=== PATIENT | female | born 1955 | race African-American/Black ===

== ENCOUNTER → 2019-07-02 | Outpatient (CLI) | payer MEDICARE | END | disposition home or self-care (01) | LOC: LABWHC1 08:02 | PROVIDERS: ATTEND Surgery | DX: U07.1 COVID-19 (principal) | CPT/HCPCS: 87635 ==

== ENCOUNTER 2019-07-04 13:36 | Day surgery (SDC) | payer BC, MEDICARE ==
[2019-07-03 11:03] VITALS: BMI 29.2
--- NOTE | 2019-07-04 13:03 | P.GSHP ---
History of Present Illness H&P Date: 07/04/19 Chief Complaint: Right upper quadrant pain This is a 63-year-old female with quadrant quadrant pain. Patient's workup found have gallstones. She presents today for laparoscopic cholecystectomy Past Medical History Past Medical History: Deep Vein Thrombosis (DVT), GERD/Reflux, Hypertension, Liver Disease, Osteoarthritis (OA) Additional Past Medical History / Comment(s): Hx migraines, had inj 1 month ago. DVT ankle as teen. "Borderline" DM. Hep C 2002, had tx. [facility], last cortisone inj 02/2019 est. Varicose veins. "Sludge" in gallbladder. History of Any Multi-Drug Resistant Organisms: None Reported Past Surgical History: Back Surgery, Tubal Ligation Additional Past Surgical History / Comment(s): Atopic preg, cyst on ovary, removal tube. Miscarriage, D&C; x2. Back surg x3, 1990, 1992 x2 - Lumbar Laminectomy. Past Anesthesia/Blood Transfusion Reactions: Motion Sickness Smoking Status: Current every day smoker - Past Family History Father Family Medical History: Coronary Artery Disease (CAD) Medications and Allergies Home Medications Medication Instructions Recorded Confirmed Type ALPRAZolam [Xanax] 0.5 mg PO BID PRN 07/03/19 07/03/19 History Acetaminophen [Tylenol Extra 1,000 mg PO DIRECTED PRN 07/03/19 07/03/19 History Strength] Atenolol [Tenormin] 100 mg PO HS 07/03/19 07/03/19 History Escitalopram [Lexapro] 20 mg PO HS 07/03/19 07/03/19 History Famotidine [Pepcid] 40 mg PO HS 07/03/19 07/03/19 History Fremanezumab-Vfrm [Ajovy] 225 mg SQ DIRECTED 07/03/19 07/03/19 History Hemp Cream (Unknown Dose) 1 applic TOPICAL DIRECTED PRN 07/03/19 History Ibuprofen [Motrin] 800 mg PO Q8H PRN 07/03/19 07/03/19 History Rizatriptan Benzoate [Maxalt] 10 mg PO TID PRN 07/03/19 07/03/19 History Allergies Allergy/AdvReac Type Severity Reaction Status Date / Time No Known Allergies Allergy Verified 07/03/19 10:31 Surgical - Exam - General well developed, well nourished, no distress - Eyes PERRL - ENT normal pinna - Neck no masses - Respiratory normal expansion - Cardiovascular Rhythm: regular - Abdomen Abdomen: soft, non tender Assessment and Plan Assessment: Right upper quadrant pain Cholelithiasis We'll perform laparoscopic cholecystectomy
[~2019-07-04 13:36] MED LIST: ACETAMINOPHEN TAB 500 MG TAB PO ONE; HEPARIN SODIUM,PORCINE 5,000 UNIT/ML 1 ML VIAL SQ ONE
[2019-07-04] MEDS ORDERED: LACTATED RINGERS 1,000 ML IV ONE ×4 (13:59→16:01)
[2019-07-04] MEDS ORDERED: LIDOCAINE 1% (10MG/ML) FOR IV START INTRADERMA ONE (14:09)
[2019-07-04] MEDS ORDERED: DEXAMETHASONE SOD PHOS (MDV) 100 MG/10 ML VIAL IVP ONE (14:16)
[2019-07-04] MEDS ORDERED: ONDANSETRON 4 MG/2 ML VIAL IVP ONE (14:16)
[2019-07-04 14:20] LABS: Glucose,Whole Blood 118 mg/dL (75-99)
[2019-07-04 14:25] LABS: Basophils % (A) 0 %; Eosinophils # (A) 0.1 k/uL (0-0.7); Eosinophils % (A) 2 %; HCT 42.2 % (34.0-46.0); HGB 14.6 gm/dL (11.4-16.0); Lymphocytes # (A) 1.6 k/uL (1.0-4.8); Lymphocytes % (A) 23 %; MCH 32.6 pg (25.0-35.0); MCHC 34.6 g/dL (31.0-37.0); MCV 94.2 fL (80.0-100.0); Mean Platelet Volume 8.3; Monocytes # (A) 0.4 k/uL (0-1.0); Monocytes % (A) 5 %; Neutrophils # (A) 4.8 k/uL (1.3-7.7); Neutrophils % (A) 68 %; Platelet Count 368 k/uL (150-450); RBC 4.48 m/uL (3.80-5.40); RDW 12.8 % (11.5-15.5); WBC 7.1 k/uL (3.8-10.6)
[2019-07-04 14:35] LABS: Calcium 9.6 mg/dL (8.4-10.2); Potassium 4.4 mmol/L (3.5-5.1)
[2019-07-04] MEDS ORDERED: BUPIVACAIN-EPI 0.25%-1:200,000 30 ML VIAL SQ ONE (14:50)
[2019-07-04] MEDS ORDERED: SUCCINYLCHOLINE CHLORIDE 100 MG/5 ML SYR IV ONE (14:50)
[2019-07-04] MEDS ORDERED: METOPROLOL TARTRATE 5 MG/5 ML VIAL IVP ONE (14:50)
[2019-07-04] MEDS ORDERED: GLYCOPYRROLATE 0.2 MG/ML 2 ML VIAL ONE (14:50)
[2019-07-04] MEDS ORDERED: PROPOFOL 10 MG/ML 20 ML VIAL IV ONE (14:50)
[2019-07-04] MEDS ORDERED: NEOSTIGMINE 1 MG/ML 10 ML VIAL ONE (14:50)
[2019-07-04] MEDS ORDERED: KETOROLAC 30 MG/ML 1 ML VIAL ONE (14:50)
[2019-07-04] MEDS ORDERED: fentaNYL (PF) 50 MCG/ML 2 ML AMP ONE (14:50)
[2019-07-04] MEDS ORDERED: MIDAZOLAM 2 MG/2 ML VIAL ONE (14:50)
[2019-07-04] MEDS ORDERED: LIDOCAINE 1% INJ 10MG/ML (20 ML MDV) ONE (14:50)
[2019-07-04] MEDS ORDERED: ROCURONIUM BROMIDE 10 MG/ML 5 ML VIAL IV ONE (14:50)
--- NOTE | 2019-07-04 14:56 | P.GSHP ---
History of Present Illness H&P Date: 07/04/19 Chief Complaint: Cholelithiasis, right upper quadrant pain 63-year-old female been safe for laparoscopic cholestatic. Patient is where quadrant pain. She's known to have cholelithiasis. Past Medical History Past Medical History: Deep Vein Thrombosis (DVT), GERD/Reflux, Hypertension, Liver Disease, Osteoarthritis (OA) Additional Past Medical History / Comment(s): Hx migraines, had inj 1 month ago. DVT ankle as teen. "Borderline" DM. Hep C 2002, had tx. [facility], last cortisone inj 02/2019 est. Varicose veins. "Sludge" in gallbladder. History of Any Multi-Drug Resistant Organisms: None Reported Past Surgical History: Back Surgery, Tubal Ligation Additional Past Surgical History / Comment(s): Atopic preg, cyst on ovary, re moval tube. Miscarriage, D&C; x2. Back surg x3, 1990, 1992 x2 - Lumbar Laminectomy. Past Anesthesia/Blood Transfusion Reactions: Motion Sickness Smoking Status: Current every day smoker - Past Family History Father Family Medical History: Coronary Artery Disease (CAD) Medications and Allergies Home Medications Medication Instructions Recorded Confirmed Type ALPRAZolam [Xanax] 0.5 mg PO BID PRN 07/03/19 07/03/19 History Acetaminophen [Tylenol Extra 1,000 mg PO DIRECTED PRN 07/03/19 07/04/19 History Strength] Atenolol [Tenormin] 100 mg PO HS 07/03/19 07/04/19 History Escitalopram [Lexapro] 20 mg PO HS 07/03/19 07/04/19 History Famotidine [Pepcid] 40 mg PO HS 07/03/19 07/04/19 History Fremanezumab-Vfrm [Ajovy] 225 mg SQ DIRECTED 07/03/19 07/03/19 History Hemp Cream (Unknown Dose) 1 applic TOPICAL DIRECTED PRN 07/03/19 07/04/19 History Ibuprofen [Motrin] 800 mg PO Q8H PRN 07/03/19 07/03/19 History Rizatriptan Benzoate [Maxalt] 10 mg PO TID PRN 07/03/19 07/04/19 History Allergies Allergy/AdvReac Type Severity Reaction Status Date / Time No Known Allergies Allergy Verified 07/03/19 10:31 Surgical - Exam Vital Signs Temp Pulse Resp BP Pulse Ox 97.8 F 78 18 164/79 97 07/04/19 13:53 07/04/19 13:53 07/04/19 13:53 07/04/19 13:53 07/04/19 13:53 - General well developed, well nourished, no distress - Eyes PERRL - ENT normal pinna - Neck no masses - Respiratory normal expansion - Cardiovascular Rhythm: regular - Abdomen Abdomen: soft, non tender Results - Labs 07/04/19 14:07 07/04/19 14:07 Abnormal Lab Results - Last 24 Hours (Table) 07/04/19 07/04/19 Range/Units 14:07 14:12 Chloride 108 H (98-107) mmol/L Glucose 122 H (74-99) mg/dL POC Glucose (mg/dL) 118 H (75-99) mg/dL Diabetes panel 07/04/19 Range/Units 14:07 Sodium 138 (137-145) mmol/L Potassium 4.4 (3.5-5.1) mmol/L Chloride 108 H (98-107) mmol/L Carbon Dioxide 22 (22-30) mmol/L BUN 10 (7-17) mg/dL Creatinine 0.92 (0.52-1.04) mg/dL Glucose 122 H (74-99) mg/dL Calcium 9.6 (8.4-10.2) mg/dL Calcium panel 07/04/19 Range/Units 14:07 Calcium 9.6 (8.4-10.2) mg/dL Pituitary panel 07/04/19 Range/Units 14:07 Sodium 138 (137-145) mmol/L Potassium 4.4 (3.5-5.1) mmol/L Chloride 108 H (98-107) mmol/L Carbon Dioxide 22 (22-30) mmol/L BUN 10 (7-17) mg/dL Creatinine 0.92 (0.52-1.04) mg/dL Glucose 122 H (74-99) mg/dL Calcium 9.6 (8.4-10.2) mg/dL Adrenal panel 07/04/19 Range/Units 14:07 Sodium 138 (137-145) mmol/L Potassium 4.4 (3.5-5.1) mmol/L Chloride 108 H (98-107) mmol/L Carbon Dioxide 22 (22-30) mmol/L BUN 10 (7-17) mg/dL Creatinine 0.92 (0.52-1.04) mg/dL Glucose 122 H (74-99) mg/dL Calcium 9.6 (8.4-10.2) mg/dL Assessment and Plan Assessment: Cholelithiasis, right upper quadrant pain. We'll perform laparoscopic cholecystectomy
[2019-07-04] MEDS ORDERED: ONDANSETRON 4 MG/2 ML VIAL IVP PRN (15:25)
[2019-07-04] MEDS ORDERED: NALOXONE 0.4 MG/ML 1 ML VIAL IV PRN (15:25)
[2019-07-04] MEDS ORDERED: HYDROcodone/APAP 5-325MG 1 EACH TAB PO PRN (15:25)
[2019-07-04] MEDS ORDERED: LABETALOL 5 MG/ML VIAL MDV IV ONE (15:40)
[2019-07-04] MEDS: HYDROmorphone 0.5 MG/0.5 ML SYRINGE IVP PRN ×2 (15:50→15:59)
[2019-07-04] MEDS: LACTATED RINGERS 1,000 ML IV SCH (19:34)
[2019-07-04] MEDS ORDERED: Rizatriptan Benzoate [Maxalt] 10 MG PO PRN (22:35)
[2019-07-05] MEDS: LACTATED RINGERS 1,000 ML IV SCH (05:50)
[2019-07-05] MEDS ORDERED: IBUPROFEN 800 MG TAB PO PRN (07:57)
[2019-07-05] MEDS ORDERED: ALPRAZolam 0.5 MG TAB PO PRN (07:57)
[2019-07-05] MEDS ORDERED: HEMP TOPICAL PRN (07:57)
[2019-07-05] MEDS ORDERED: FREMANEZUMAB VFRM 225 MG SQ SCH (08:00)
--- NOTE | 2019-07-05 08:05 | P.CONS ---
History of Present Illness - Reason for Consult Consult date: 07/05/19 Requesting physician: Shay Warren - Chief Complaint Medical management - History of Present Illness This is a consultation on a 63-year-old black female who is postop day #1 laparoscopic cholecystectomy. She hasn't underlying history of hypertension and migraine headaches. She states some umbilical pain today. No flatus. No overt nausea but she has significant headache yesterday. No fever or chills. No sniffing voiding difficulty stated although she is not passing flatus today. I have been consulted for medical management. Review of Systems Constitutional: Denies chills, Denies fever Eyes: denies blurred vision, denies pain Ears, nose, mouth and throat: Denies headache, Denies sore throat Cardiovascular: Denies chest pain, Denies shortness of breath Respiratory: Denies cough Gastrointestinal: Denies abdominal pain, Denies diarrhea, Denies nausea, Denies vomiting Integumentary: Denies pruritus, Denies rash Neurological: Reports headaches Psychiatric: Denies anxiety, Denies depression Past Medical History Past Medical History: Deep Vein Thrombosis (DVT), GERD/Reflux, Hypertension, Liver Disease, Osteoarthritis (OA) Additional Past Medical History / Comment(s): Hx migraines, had inj 1 month ago. DVT ankle as teen. "Borderline" DM. Hep C 2002, had tx. [facility], last cortisone inj 02/2019 est. Varicose veins. "Sludge" in gallbladder. History of Any Multi-Drug Resistant Organisms: None Reported Past Surgical History: Back Surgery, Tubal Ligation Additional Past Surgical History / Comment(s): Atopic preg, cyst on ovary, removal tube. Miscarriage, D&C; x2. Back surg x3, 1990, 1992 x2 - Lumbar Laminectomy. Past Anesthesia/Blood Transfusion Reactions: Motion Sickness Past Psychological History: Anxiety, Depression Smoking Status: Current every day smoker Past Alcohol Use History: Rare Additional Past Alcohol Use History / Comment(s): Smoking on/off beginning at age 16, currently since 2002, 1 ppd Past Drug Use History: Marijuana Additional Drug Use History / Comment(s): Occ marijuana edibles. Hemp cream use occ. - Past Family History Father Family Medical History: Coronary Artery Disease (CAD) Medications and Allergies Home Medications Medication Instructions Recorded Confirmed Type ALPRAZolam [Xanax] 0.5 mg PO BID PRN 07/03/19 07/03/19 History Acetaminophen [Tylenol Extra 1,000 mg PO DIRECTED PRN 07/03/19 07/04/19 History Strength] Atenolol [Tenormin] 100 mg PO HS 07/03/19 07/04/19 History Escitalopram [Lexapro] 20 mg PO HS 07/03/19 07/04/19 History Famotidine [Pepcid] 40 mg PO HS 07/03/19 07/04/19 History Fremanezumab-Vfrm [Ajovy] 225 mg SQ DIRECTED 07/03/19 07/03/19 History Hemp Cream (Unknown Dose) 1 applic TOPICAL DIRECTED PRN 07/03/19 07/04/19 History Ibuprofen [Motrin] 800 mg PO Q8H PRN 07/03/19 07/03/19 History Rizatriptan Benzoate [Maxalt] 10 mg PO TID PRN 07/03/19 07/04/19 History Allergies Allergy/AdvReac Type Severity Reaction Status Date / Time No Known Allergies Allergy Verified 07/03/19 10:31 Physical Exam Vitals: Vital Signs Temp Pulse Pulse Pulse Resp BP BP 07/05/19 05:00 98.7 F 94 18 175/81 07/04/19 20:18 97.7 F 84 17 153/81 07/04/19 19:34 97.5 F L 94 18 155/84 07/04/19 16:47 74 16 151/75 07/04/19 16:32 78 16 156/74 07/04/19 16:17 81 16 152/78 07/04/19 16:02 79 18 161/83 07/04/19 15:46 83 16 141/83 07/04/19 15:36 98 F 80 16 141/83 07/04/19 14:17 97.8 F 78 18 164/79 07/04/19 13:53 97.8 F 78 18 164/79 Pulse Ox 07/05/19 05:00 94 L 07/04/19 20:18 96 07/04/19 19:34 95 07/04/19 16:47 98 07/04/19 16:32 93 L 07/04/19 16:17 94 L 07/04/19 16:02 92 L 07/04/19 15:46 97 07/04/19 15:36 97 07/04/19 14:17 97 07/04/19 13:53 97 Intake and Output 07/04/19 07/05/19 07/05/19 22:59 06:59 14:59 Intake Total 1300 1200 Output Total 5 Balance 1295 1200 Intake: IV 200 Intake, IV Titration 500 Amount Lactated Ringers 1,000 ml 500 @ 125 mls/hr IV .Q8H ONE Rx#:[id number] Oral 600 1200 Output: Estimated Blood Loss 5 Other: Voiding Method Toilet # Voids 1 3 Weight 82.5 kg - Constitutional General appearance: no acute distress - EENT Eyes: EOMI - Neck Neck: no lymphadenopathy - Respiratory Respiratory: bilateral: CTA - Cardiovascular Rhythm: regular Heart sounds: normal: S1, S2 Abnormal Heart Sounds: no S3 Gallop - Gastrointestinal General gastrointestinal: soft, no tenderness - Neurologic Neurologic: CNII-XII intact Results CBC & Chem 7: 07/04/19 14:07 07/04/19 14:07 Labs: Abnormal Lab Results - Last 24 Hours (Table) 07/04/19 07/04/19 Range/Units 14:07 14:12 Chloride 108 H (98-107) mmol/L Glucose 122 H (74-99) mg/dL POC Glucose (mg/dL) 118 H (75-99) mg/dL Assessment and Plan (1) Status post laparoscopic cholecystectomy Current Visit: Yes Status: Acute Code(s): Z90.49 - ACQUIRED ABSENCE OF OTHER SPECIFIED PARTS OF DIGESTIVE TRACT SNOMED Code(s): 718218942 (2) Migraine aura without headache Current Visit: Yes Status: Acute Code(s): G43.109 - MIGRAINE WITH AURA, NOT INTRACTABLE, W/O STATUS MIGRAINOSUS SNOMED Code(s): 595046860 Plan: We'll go ahead and reconcile medications. Anticipate discharge in next 24 hours. Pulmonary toilet and standard postoperative protocol including DVT prophylaxis. Appreciate consultation will follow medically during this hospitalization. Time with Patient: Greater than 30
[2019-07-05] MEDS ORDERED: ENOXAPARIN 40 MG/0.4 ML SYRINGE SQ SCH (09:00)
[2019-07-05] MEDS ORDERED: FAMOTIDINE 20 MG TAB PO SCH ×2 (10:00→21:00)
--- NOTE | 2019-07-05 11:31 | P.DS ---
Providers Expected date of discharge: 07/05/19 Attending physician: Shay Warren Consults: 07/04/19 15:25 Consult Physician Routine Consulting Provider: Ruben Monge Consult Reason/Comments: Medical management Do you want consulting provider notified?: Yes Primary care physician: Ruben Monge [facility] Course: This is a 63-year-old female who underwent laparoscopic cholestatic. Patient was observed overnight. Patient did well. Please see hospital chart for details. Procedures: Laparoscopic cholecystectomy Patient Condition at Discharge: Good Plan - Discharge Summary Discharge Rx Participant: No New Discharge Prescriptions: New Docusate [Colace] 100 mg PO BID #20 capsule HYDROcodone/APAP 5-325MG [Henderson 5-325] 1 tab PO Q6HR PRN #10 tab PRN Reason: Pain No Action Acetaminophen [Tylenol Extra Strength] 1,000 mg PO DIRECTED PRN PRN Reason: Pain ALPRAZolam [Xanax] 0.5 mg PO BID PRN PRN Reason: Anxiety Atenolol [Tenormin] 100 mg PO HS Escitalopram [Lexapro] 20 mg PO HS Famotidine [Pepcid] 40 mg PO HS Ibuprofen [Motrin] 800 mg PO Q8H PRN PRN Reason: Pain Rizatriptan Benzoate [Maxalt] 10 mg PO TID PRN PRN Reason: Migraine Headache Fremanezumab-Vfrm [Ajovy] 225 mg SQ DIRECTED Hemp Cream (Unknown Dose) 1 applic TOPICAL DIRECTED PRN PRN Reason: Pain Discharge Medication List ALPRAZolam [Xanax] 0.5 mg PO BID PRN 07/03/19 [History] Acetaminophen [Tylenol Extra Strength] 1,000 mg PO DIRECTED PRN 07/03/19 [History] Atenolol [Tenormin] 100 mg PO HS 07/03/19 [History] Escitalopram [Lexapro] 20 mg PO HS 07/03/19 [History] Famotidine [Pepcid] 40 mg PO HS 07/03/19 [History] Fremanezumab-Vfrm [Ajovy] 225 mg SQ DIRECTED 07/03/19 [History] Hemp Cream (Unknown Dose) 1 applic TOPICAL DIRECTED PRN 07/03/19 [History] Ibuprofen [Motrin] 800 mg PO Q8H PRN 07/03/19 [History] Rizatriptan Benzoate [Maxalt] 10 mg PO TID PRN 07/03/19 [History] Docusate [Colace] 100 mg PO BID #20 capsule 07/05/19 [Rx] HYDROcodone/APAP 5-325MG [Henderson 5-325] 1 tab PO Q6HR PRN #10 tab 07/05/19 [Rx] Follow up Appointment(s)/Referral(s): Shay Warren MD [STAFF PHYSICIAN] - 07/12/19 2:00 pm Patient Instructions/Handouts: *Surgery [facility] - ([facility]) Laparoscopic Cholecystectomy, Hydrocodone/Acetaminophen (By mouth), Laxative, Stool Softeners (By mouth) Activity/Diet/Wound Care/Special Instructions: Activity as tolerated. Low-fat diet as tolerated. Okay to shower. No tub baths. No lifting more than 10lbs.
[2019-07-05 11:56] VITALS: BP 154/71; PULSE 84; RESP 17; TEMP 97.9
[2019-07-05] MEDS ORDERED: ESCITALOPRAM 20 MG TAB PO SCH (21:00)
[2019-07-05] MEDS ORDERED: ATENOLOL 50 MG TAB PO SCH (21:00)
--- NOTE | 2019-07-08 16:05 | P.OP ---
Date of Procedure: 07/04/19 Preoperative Diagnosis: Cholecystitis Postoperative Diagnosis: Cholecystitis Procedure(s) Performed: Laparoscopic cholecystectomy Anesthesia: KALI Surgeon: Shay Warren Estimated Blood Loss (ml): 5 Pathology: other (Gallbladder) Condition: stable Disposition: PACU Description of Procedure: The patient was placed on the operating table. The patient received a general endotracheal tube anesthesia. The patients abdomen was prepped and draped in the usual sterile fashion. Through an infraumbilical stab incision, the fascia of the anterior abdominal wall was grasped with a pair of Kochers and then the Veress needle was placed in the peritoneal cavity. Position of the Veress needle was confirmed with positive drop test. The abdomen was then insufflated. After adequate insufflation, the 10 mm trocar was placed in the peritoneal cavity. Following this the laparoscope was placed in the peritoneal cavity. The patient was placed in the head-up, right side up position and then a 5 mm trocar was placed in the right lateral and right subcostal position under direct visualization. A 8 mm trocar was placed in the epigastric position. The gallbladder was grasped in the fundus and infundibulum. Traction on the gallbladder was placed in the lateral and the cephalad positions. The triangle of Calot was visualized.. The cystic duct was bluntly dissected until the union of the cystic duct and common bile duct was seen. A critical view of safety was achieved. The cystic duct was then divided and sealed with the Harmonic scissors. A PDS Endoloop was then placed throughout the cystic duct stump. The cystic artery divided and sealed with the Harmonic scissors. The gallbladder was then removed from the liver bed using Harmonic scissors. The gallbladder was then extracted through the epigastric port site. Operative field was checked for any bleeding spots and Harmonic scissors was used to coagulate the liver bed. The abdomen was irrigated. The trocars were removed. The skin was closed using interrupted 3-0 Vicryl suture. Dermabond dressing were applied. The patient tolerated the procedure well.
== END 2019-07-05 14:30 | disposition home or self-care (01) ==
LOC: OR 13:36 → 5NMEDONC 15:36 → OR 07-05 14:30
PROVIDERS: ATTEND Surgery
DX: K81.1 Chronic cholecystitis (principal); I10 Essential (primary) hypertension; M19.90 Unspecified osteoarthritis, unspecified site; I83.90 Asymptomatic varicose veins of unspecified lower extremity; K21.9 Gastro-esophageal reflux disease without esophagitis; F41.9 Anxiety disorder, unspecified; E11.9 Type 2 diabetes mellitus without complications; F32.9 Major depressive disorder, single episode, unspecified; F17.210 Nicotine dependence, cigarettes, uncomplicated; G43.109 Migraine with aura, not intractable, without status migrainosus; G43.909 Migraine, unspecified, not intractable, without status migrainosus; Z86.718 Personal history of other venous thrombosis and embolism; Z79.899 Other long term (current) drug therapy; Z86.19 Personal history of other infectious and parasitic diseases; Z98.890 Other specified postprocedural states; Z98.51 Tubal ligation status; Z82.49 Family history of ischemic heart disease and other diseases of the circulatory system
CPT/HCPCS: 93005; 88304; 80048; 85025; 47562; J2250; J1644; J2710; J0690; J2405; J2001; J1650; J3010; J1885; J1100; J0330; J2704; J1170

== ENCOUNTER → 2021-11-26 | Outpatient (CLI) | payer MEDICARE, OTHER ==
--- NOTE | 2021-11-26 15:46 | XR ---
EXAM TYPE: LUMBAR SPINE X RAY SERIES COMPARISON: NONE HISTORY: Pain TECHNIQUE: 4 views are submitted. FINDINGS: Alignment is anatomic. The pedicles are intact. The transverse processes are intact. There is loss of the normal lumbar lordosis with severe multilevel degenerative disc disease and facet arthropathy . IMPRESSION: 1. Multilevel severe degenerative disc disease with anterior spurring and facet arthropathy. Suspect multilevel foraminal encroachment and canal stenosis. 2. Loss the normal lumbar lordosis.
== END | disposition home or self-care (01) ==
LOC: RADXRMAIN 13:50
PROVIDERS: ATTEND Family Medicine
DX: M51.26 Other intervertebral disc displacement, lumbar region (principal); M47.816 Spondylosis without myelopathy or radiculopathy, lumbar region
CPT/HCPCS: 72100

== ENCOUNTER → 2021-12-02 | Outpatient (CLI) | payer MEDICARE, OTHER ==
--- NOTE | 2021-12-03 07:56 | MR ---
EXAMINATION TYPE: MR lumbar spine wo con DATE OF EXAM: 12/02/2021 4:26 PM COMPARISON: Lumbar spine radiograph 11/26/2021. CLINICAL INDICATION:Female, 65 years old with history of M51.36 INTERVERTEBRAL DISC DEGENERATION, LUM BAR; TECHNIQUE: Multi planar, multi sequence imaging was performed utilizing: T1-weighted, T2-weighted, a nd turbo inversion recovery imaging of the lumbar spine. IV Contrast: None FINDINGS: Alignment: The lumbar vertebral bodies have preserved heights. There is straightening of the lumbar s pine. Cord: The conus medullaris and the distal spinal cord appear unremarkable with regards to their signa l intensity and morphology. Multiple levels of cauda equina bunching most pronounced at L2-L3 and L3- L4. Bones/Discs: Bone signal demonstrates Modic endplate changes most pronounced at the anterior adjoinin g endplates of L4 and L5. No significant bone marrow edema seen on inversion recovery images. Multil evel degenerative disc disease is noted and most pronounced at the L2-L5. Multilevel disc desiccation loss of disc height is present. Laminectomy changes at L3-L4 and L5. T10-T11 and T11-T12 disc bulging which mildly narrows the spinal canal, seen on sagittal view measuri ng only. L1-L2: No significant disc pathology. Spinal canal is patent. The neural foramen are patent. L2-L3: Diffuse disc bulge with facet joint arthropathy result in moderate to severe spinal canal sten osis. There is moderate to severe bilateral neural foraminal stenosis. Cauda equina bunching is at th is level. L3-L4: Diffuse disc bulge with facet joint arthropathy result in moderate to severe spinal canal sten osis and moderate to severe bilateral neural foraminal stenosis. Cauda equina bunching is at this lev el. L4-L5: Disc bulging with osteophyte with superimposed right disc protrusion in the right foraminal re gion resulting in moderate bilateral neural foraminal stenosis. Spinal canal is patent. L5-S1: Right subarticular/foraminal disc extrusion with disc material effacing the forming nerve root s in the spinal canal on the right. There is some migration changes measuring at least 9 mm inferiorl y and 5 mm superiorly. There is facet joint arthropathy with this disc bulge also resulting in modera te right and mild to moderate left neural foraminal stenosis. Other findings: Bilateral high T2 signal renal cyst. Soft tissue surgical changes are noted in the p osterior lumbar spine. IMPRESSION: 1. Severe multilevel disc degeneration changes throughout the spine. These findings are worse at L2- L5. Additional multilevel neural foraminal stenosis which is worse at L2-3 and L3-L4 bilaterally mode rate to severe neural foraminal stenosis. 2. L5-S1 right disc extrusion with disc material abutting the forming nerves in the thecal sac. 3. L2-L3 and L3-L4 moderate to severe spinal canal stenosis.
== END | disposition home or self-care (01) ==
LOC: RADMRIMAIN 14:41
PROVIDERS: ATTEND Family Medicine
DX: M51.36 Other intervertebral disc degeneration, lumbar region (principal); M48.061 Spinal stenosis, lumbar region without neurogenic claudication; M51.26 Other intervertebral disc displacement, lumbar region
CPT/HCPCS: 72148

== ENCOUNTER 2022-07-14 23:24 | Emergency (ER) | payer MEDICARE ==
[2022-07-14 23:33] VITALS: TEMP 98
[2022-07-15 00:36] LABS: Basophils % (A) 1 %; Eosinophils # (A) 0.2 k/uL (0-0.7); Eosinophils % (A) 3 %; HCT 40.4 % (34.0-46.0); HGB 13.6 gm/dL (11.4-16.0); Lymphocytes # (A) 2.8 k/uL (1.0-4.8); Lymphocytes % (A) 37 %; MCH 31.9 pg (25.0-35.0); MCHC 33.6 g/dL (31.0-37.0); MCV 94.9 fL (80.0-100.0); Mean Platelet Volume 8.4; Monocytes # (A) 0.4 k/uL (0-1.0); Monocytes % (A) 5 %; Neutrophils % (A) 52 %; Platelet Count 271 k/uL (150-450); RBC 4.25 m/uL (3.80-5.40); RDW 12.8 % (11.5-15.5); WBC 7.6 k/uL (3.8-10.6)
[2022-07-15 00:47] LABS: Albumin 3.7 g/dL (3.5-5.0); Calcium 8.8 mg/dL (8.4-10.2); Magnesium 1.9 mg/dL (1.6-2.3); Potassium 4.1 mmol/L (3.5-5.1); Total Bilirubin 0.2 mg/dL (0.2-1.3); Total Protein 6.9 g/dL (6.3-8.2)
--- NOTE | 2022-07-15 01:25 | XR ---
EXAM: XR Chest, 2 Views CLINICAL HISTORY: ITS.REASON XR Reason: CP TECHNIQUE: Frontal and lateral views of the chest. COMPARISON: No relevant prior studies available. FINDINGS: Lungs: Unremarkable. No consolidation. Pleural space: Unremarkable. No pleural effusion or pneumothorax. Heart: Unremarkable. No cardiomegaly or pulmonary vascular congestion. Bones/joints: No acute fracture. No dislocation. IMPRESSION: No evidence of acute cardiopulmonary disease.
[2022-07-15] MEDS ORDERED: hydrALAZINE HCL 20 MG/ML 1 ML VIAL IVP STA ×2 (01:43→02:36)
--- NOTE | 2022-07-15 02:54 | ED ---
General Adult HPI - General Chief complaint: Recheck/Abnormal Lab/Rx Stated complaint: HTN Time Seen by Provider: 07/15/22 00:08 Source: patient Mode of arrival: ambulatory Limitations: no limitations - History of Present Illness Initial comments: This is a 66-year-old female with a past medical history including hypertension presents emergency department for elevated blood pressure. The patient stated that she was at the clinic earlier today when she did have elevated blood pressures. The patient was advised to continue to monitor her symptoms and to come back to the emergency department if they were a little bit higher worse. The patient did state that she was at her grandmother's house when she rechecked her blood pressure and was significantly elevated so she came to the emergency department. The patient did state that she came to the emergency department for reevaluation. On arrival, the patient did not complain of any acute pain, s hortness of breath or lightheadedness. The patient stated that she has been taking her medications as prescribed. - Related Data Home Medications Medication Instructions Recorded Confirmed ALPRAZolam [Xanax] 0.5 mg PO BID PRN 07/03/19 07/14/22 Acetaminophen [Tylenol Extra 1,000 mg PO DIRECTED PRN 07/03/19 07/14/22 Strength] Escitalopram [Lexapro] 20 mg PO HS 07/03/19 07/14/22 Famotidine [Pepcid] 40 mg PO HS 07/03/19 07/14/22 Fremanezumab-Vfrm [Ajovy] 225 mg SQ DIRECTED 07/03/19 07/14/22 Hemp Cream (Unknown Dose) 1 applic TOPICAL DIRECTED PRN 07/03/19 07/14/22 Ibuprofen [Motrin] 800 mg PO Q8H PRN 07/03/19 07/14/22 Rizatriptan Benzoate [Maxalt] 10 mg PO TID PRN 07/03/19 07/14/22 atenoloL [Tenormin] 100 mg PO HS 07/03/19 07/14/22 Previous Rx's Medication Instructions Recorded Docusate [Colace] 100 mg PO BID #20 capsule 07/05/19 HYDROcodone/APAP 5-325MG [[place] 1 tab PO Q6HR PRN #10 tab 07/05/19 5-325] Allergies Allergy/AdvReac Type Severity Reaction Status Date / Time No Known Allergies Allergy Verified 07/14/22 23:29 Review of Systems ROS Statement: Those systems with pertinent positive or pertinent negative responses have been documented in the HPI. ROS Other: All systems not noted in ROS Statement are negative. Past Medical History Past Medical History: Deep Vein Thrombosis (DVT), GERD/Reflux, Hypertension, Liver Disease, Osteoarthritis (OA) Additional Past Medical History / Comment(s): Hx migraines, had inj 1 month ago. DVT ankle as teen. "Borderline" DM. Hep C 2002, had tx. [facility], last cor tisone inj 02/2019 est. Varicose veins. "Sludge" in gallbladder. History of Any Multi-Drug Resistant Organisms: None Reported Past Surgical History: Back Surgery, Tubal Ligation Additional Past Surgical History / Comment(s): Atopic preg, cyst on ovary, removal tube. Miscarriage, D&C; x2. Back surg x3, 1990, 1992 x2 - Lumbar Laminectomy. Past Anesthesia/Blood Transfusion Reactions: Motion Sickness Past Psychological History: Anxiety, Depression Smoking Status: Current every day smoker Past Alcohol Use History: Occasional, Rare Past Drug Use History: Marijuana - Past Family History Father Family Medical History: Coronary Artery Disease (CAD) General Exam Limitations: no limitations General appearance: alert, in no apparent distress Head exam: Present: atraumatic, normocephalic, normal inspection Eye exam: Present: normal appearance, PERRL Pupils: Present: normal accommodation ENT exam: Present: normal exam, normal oropharynx, mucous membranes moist Neck exam: Present: normal inspection, full ROM Respiratory exam: Present: normal lung sounds bilaterally Cardiovascular Exam: Present: regular rate, normal rhythm, normal heart sounds GI/Abdominal exam: Present: soft, normal bowel sounds Extremities exam: Present: normal inspection, full ROM Back exam: Present: normal inspection, full ROM Neurological exam: Present: alert, oriented X3, CN II-XII intact Psychiatric exam: Present: normal affect, normal mood Skin exam: Present: warm, dry Course Vital Signs 07/14/22 07/14/22 07/15/22 23:30 23:49 00:45 Temperature 98.0 F Pulse Rate 75 87 Respiratory 18 18 Rate Blood Pressure 240/106 247/116 220/100 O2 Sat by Pulse 99 96 Oximetry 07/15/22 07/15/22 07/15/22 00:50 01:00 01:10 Temperature Pulse Rate 67 67 68 Respiratory 20 18 Rate Blood Pressure 205/106 205/106 O2 Sat by Pulse 99 99 98 Oximetry 07/15/22 07/15/22 07/15/22 01:20 01:30 01:40 Temperature Pulse Rate 61 61 62 Respiratory 21 17 Rate Blood Pressure 210/108 210/108 210/109 O2 Sat by Pulse 98 99 Oximetry 07/15/22 07/15/22 07/15/22 01:50 02:00 02:23 Temperature Pulse Rate 69 70 79 Respiratory 20 20 18 Rate Blood Pressure 224/102 224/102 185/86 O2 Sat by Pulse 98 98 98 Oximetry 07/15/22 07/15/22 07/15/22 02:30 02:40 03:00 Temperature Pulse Rate 77 78 Respiratory 21 20 Rate Blood Pressure 185/86 198/92 199/104 O2 Sat by Pulse 98 97 98 Oximetry 07/15/22 07/15/22 07/15/22 03:10 03:20 03:30 Temperature Pulse Rate Respiratory Rate Blood Pressure 196/93 189/92 189/92 O2 Sat by Pulse 98 98 98 Oximetry 07/15/22 07/15/22 07/15/22 03:40 03:45 03:50 Temperature Pulse Rate 83 Respiratory 18 Rate Blood Pressure 196/98 156/83 156/83 O2 Sat by Pulse 98 96 Oximetry 07/15/22 07/15/22 07/15/22 04:00 04:10 04:20 Temperature Pulse Rate Respiratory Rate Blood Pressure 184/87 182/90 152/81 O2 Sat by Pulse 98 99 98 Oximetry 07/15/22 07/15/22 04:30 04:40 Temperature Pulse Rate 73 Respiratory 18 Rate Blood Pressure 152/81 153/69 O2 Sat by Pulse 98 97 Oximetry EKG Findings - EKG Comments: EKG Findings:: An EKG was obtained and was interpreted by myself showing a rate of 64, [place] interval 174, QRS duration of 86 and QTC of 337. This EKG showed a normal sinus rhythm with no ST segment elevation or depression noted. Medical Decision Making - Medical Decision Making Was pt. sent in by a medical professional or institution (, PA, METAL TRADES INSTRUCTOR, urgent care, hospital, or longterm...) When possible be specific @ -No Did you speak to anyone other than the patient for history (EMS, parent, family, police, friend...)? What history was obtained from this source @ -No Did you review nursing and triage notes (agree or disagree)? Why? @ -I reviewed and agree with nursing and triage notes Were old charts reviewed (outside hosp., previous admission, EMS record, old EKG, old radiological studies, urgent care reports/EKG's, longterm records)? Report findings @ -No old charts were reviewed Differential Diagnosis (chest pain, altered mental status, abdominal pain women, abdominal pain men, vaginal bleeding, weakness, fever, dyspnea, syncope, headache, dizziness, GI bleed, back pain, seizure, CVA, palpatations, mental health)? @ -Hypertensive urgency, chest pain, ACS EKG interpreted by me (3pts min.). @ -As above X-rays interpreted by me (1pt min.). @ -Chest x-ray was obtained and was interpreted by myself showing no acute process. CT interpreted by me (1pt min.). @ -None done U/S interpreted by me (1pt. min.). @ -None done What testing was considered but not performed or refused? (CT, X-rays, U/S, labs)? Why? @ -None What meds were considered but not given or refused? Why? @ -None Did you discuss the management of the patient with other professionals (professionals i.e. , PA, METAL TRADES INSTRUCTOR, lab, RT, psych nurse, social media community manager, tube pusher, teacher, minesweeping officer, trimming caser)? Give summary @ -No Was smoking cessation discussed for >3mins.? @ -No Was critical care preformed (if so, how long)? @ -No Were there social determinants of health that impacted care today? How? (Homelessness, low income, unemployed, alcoholism, drug addiction, transportation, low edu. Level, literacy, decrease access to med. care, alf, rehab)? @ -No Was there de-escalation of care discussed even if they declined (Discuss DNR or withdrawal of care, Hospice)? DNR status @ -No What co-morbidities impacted this encounter? (DM, HTN, Smoking, COPD, CAD, Cancer, CVA, ARF, Chemo, Hep., AIDS, mental health diagnosis, sleep apnea, morbid obesity)? @ -Hypertension Was patient admitted / discharged? Hospital course, mention meds given and route, prescriptions, significant lab abnormalities, going to OR and other pertinent info. @ -The patient was seen and evaluated emergency department. Physical exam, the patient was resting in bed without any acute distress. Vital signs admission were stable however the patient did have significant hypertension. Laboratory workup was obtained and was within normal limits. Due to the nature the patient's complaints, the patient did receive 10 mg of hydralazine IV and blood pressure did decrease slightly however she did require a second dose of hydralazine IV. The patient's blood pressure did decrease to around 25% and the patient was stable for discharge home. The patient was advised to follow-up with her primary care physician for continued workup and evaluation and reevaluation of her blood pressure. The patient was agreeable to this and all her questions were answered appropriate. The patient was discharged home in stable. Undiagnosed new problem with uncertain prognosis? @ -No Drug Therapy requiring intensive monitoring for toxicity (Heparin, Nitro, Insulin, Cardizem)? @ -No Were any procedures done? @ -No Diagnosis/symptom? @ -Hypertensive urgency Acute, or Chronic, or Acute on Chronic? @ -Acute on chronic Uncomplicated (without systemic symptoms) or Complicated (systemic symptoms)? @ -Uncomplicated Side effects of treatment? @ -No Exacerbation, Progression, or Severe Exacerbation? @ -No Poses a threat to life or bodily function? How? (Chest pain, [place], [place], pneumonia, PE, COPD, DKA, ARF, appy, cholecystitis, CVA, Diverticulitis, Homicidal, Suicidal, threat to staff... and all critical care pts) @ -No - Lab Data Result diagrams: 07/15/22 00:24 07/15/22 00:24 Lab Results 07/15/22 07/15/22 07/15/22 Range/Units 00:24 00:24 00:24 WBC 7.6 (3.8-10.6) k/uL RBC 4.25 (3.80-5.40) m/uL Hgb 13.6 (11.4-16.0) gm/dL Hct 40.4 (34.0-46.0) % MCV 94.9 (80.0-100.0) fL MCH 31.9 (25.0-35.0) pg MCHC 33.6 (31.0-37.0) g/dL RDW 12.8 (11.5-15.5) % Plt Count 271 (150-450) k/uL MPV 8.4 Neutrophils % 52 % Lymphocytes % 37 % Monocytes % 5 % Eosinophils % 3 % Basophils % 1 % Neutrophils # 4.0 (1.3-7.7) k/uL Lymphocytes # 2.8 (1.0-4.8) k/uL Monocytes # 0.4 (0-1.0) k/uL Eosinophils # 0.2 (0-0.7) k/uL Basophils # 0.0 (0-0.2) k/uL Sodium 138 (137-145) mmol/L Potassium 4.1 (3.5-5.1) mmol/L Chloride 104 (98-107) mmol/L Carbon Dioxide 24 (22-30) mmol/L Anion Gap 10 mmol/L BUN 16 (7-17) mg/dL Creatinine 0.96 (0.52-1.04) mg/dL Est GFR (CKD-EPI)AfAm 70 (>60 ml/min/1.73 sqM) Est GFR (CKD-EPI)NonAf 61 (>60 ml/min/1.73 sqM) Glucose 128 H (74-99) mg/dL Calcium 8.8 (8.4-10.2) mg/dL Magnesium 1.9 (1.6-2.3) mg/dL Total Bilirubin 0.2 (0.2-1.3) mg/dL AST 19 (14-36) U/L ALT 13 (4-34) U/L Alkaline Phosphatase 75 (38-126) U/L Troponin I <0.012 (0.000-0.034) ng/mL NT-Pro-B Natriuret Pep pg/mL Total Protein 6.9 (6.3-8.2) g/dL Albumin 3.7 (3.5-5.0) g/dL 07/15/22 Range/Units 00:24 WBC (3.8-10.6) k/uL RBC (3.80-5.40) m/uL Hgb (11.4-16.0) gm/dL Hct (34.0-46.0) % MCV (80.0-100.0) fL MCH (25.0-35.0) pg MCHC (31.0-37.0) g/dL RDW (11.5-15.5) % Plt Count (150-450) k/uL MPV Neutrophils % % Lymphocytes % % Monocytes % % Eosinophils % % Basophils % % Neutrophils # (1.3-7.7) k/uL Lymphocytes # (1.0-4.8) k/uL Monocytes # (0-1.0) k/uL Eosinophils # (0-0.7) k/uL Basophils # (0-0.2) k/uL Sodium (137-145) mmol/L Potassium (3.5-5.1) mmol/L Chloride (98-107) mmol/L Carbon Dioxide (22-30) mmol/L Anion Gap mmol/L BUN (7-17) mg/dL Creatinine (0.52-1.04) mg/dL Est GFR (CKD-EPI)AfAm (>60 ml/min/1.73 sqM) Est GFR (CKD-EPI)NonAf (>60 ml/min/1.73 sqM) Glucose (74-99) mg/dL Calcium (8.4-10.2) mg/dL Magnesium (1.6-2.3) mg/dL Total Bilirubin (0.2-1.3) mg/dL AST (14-36) U/L ALT (4-34) U/L Alkaline Phosphatase (38-126) U/L Troponin I (0.000-0.034) ng/mL NT-Pro-B Natriuret Pep 114 pg/mL Total Protein (6.3-8.2) g/dL Albumin (3.5-5.0) g/dL Disposition Clinical Impression: Hypertensive urgency Disposition: HOME SELF-CARE Condition: Stable Instructions (If sedation given, give patient instructions): Hypertension (ED) Is patient prescribed a controlled substance at d/c from ED?: No Referrals: Ruben Monge MD [Primary Care Provider] - 1-2 days Time of Disposition: 02:45
[2022-07-15] MEDS ORDERED: LABETALOL 5 MG/ML VIAL MDV IVP STA (03:32)
[2022-07-15 03:47] VITALS: RESP 18
[2022-07-15] MEDS ORDERED: SODIUM CHLORIDE 0.9% 1,000 ML IV ONE (03:52)
[2022-07-15 04:43] VITALS: BP 153/69; PULSE 73
== END 2022-07-15 04:58 | disposition home or self-care (01) ==
LOC: EC 23:24
DX: I16.0 Hypertensive urgency (principal); E11.9 Type 2 diabetes mellitus without complications; F32.A Depression, unspecified; F41.9 Anxiety disorder, unspecified; M19.90 Unspecified osteoarthritis, unspecified site; F17.200 Nicotine dependence, unspecified, uncomplicated; F12.90 Cannabis use, unspecified, uncomplicated; Z79.899 Other long term (current) drug therapy
CPT/HCPCS: 36415; 93005; 83880; 80053; 83735; 84484; 85025; 71046; 99284; 96374; 96375 ×2; 96361; J0360; 96376

== ENCOUNTER → 2022-07-14 | Outpatient (CLI) | payer MEDICARE ==
--- NOTE | 2022-07-14 15:02 | P.PAINPG ---
PQRS Measure Charge Sheet Comment: HISTORY OF PRESENT ILLNESS: 66 yr old female as a referral from Dr Card presents today w severe and chronic LBP secondary to DDD, spondylosis, and facet arthropathy without myelopathy for evaluation. Pt states pain level is provoked at 8 /10 in intensity, constant, localized in the mid lumbar spine, tender, achy in character w shooting pain towards hips, buttocks, BLEs and feet. Pain is provoked by standing/ walking/ sitting for periods of 15 min or more. Pain is alleviated by physician guided exercises 2-3 times weekly x 4 wks, ice, medications ([place], Neurontin, Ibu), topicals, ice, laying supine and rest. PMH: DVT, GERD, HTN, Liver Disease, OA, Hep C (2002), Cholecystitis, MDD/ Anxiety PSH: [facility], Lumbar Surgery/ Laminectomy x3 (1990, 1991 x2), Tubal Ligation, Atopic , D&C SH: Current 25 pack/ yr tobacco use, Rare ETOH use, Cannabis use FH: Fa- CAD All: NKDA Meds: See list REVIEW OF ORGAN SYSTEMS: CONSTITUTIONAL: No fevers or chills. No recent weight loss. NEUROLOGICAL: + numbness and tingling along the distal extremities. No seizure disorders or headaches. MUSCULOSKELETAL: + pain PSYCHIATRIC: Denies current depression or suicidal thoughts. Physical Examinations : Constitutional : Cooperative , not in acute distress . Neurologic : Cranial nerve II to XII intact. No focal neurological deficits. Psychiatric : alert & oriented x 3. Matching mood & appropriate affect. Judgment & insight intact. Musculoskeletal : Cervical Spine Motor strength in the deltoid and biceps: Normal right side. Normal Left side Motor strength biceps and the wrist extensors: Normal right side . Normal left side Motor strength in the triceps muscle: Normal right side. Normal left side Deep tendon reflexes: Normal at the biceps. Normal at Brachioradialis. Normal at triceps Vertebral body tenderness to deep palpation over Cervical facet loading test: positive bilaterally Spurling test: positive bilaterally Neck distraction test: positive bilaterally Armando sign: positive bilaterally Lumbar spine Motor strength lower extremities ,thigh and legs 5/5 Right side , 5/5 Left side Deep tendon reflexes : Normal Knee Jerk. Normal Ankle Jerk Vertebral body tenderness over L3 +Vides Test positive Lumbar facet Loading Test: positive Right / positive Left Range of motion of the lumbar spine Flexion 30 degrees, extension 10 degrees Straight Leg Raise test: Left/ Right positive at degree Gerri test: positive right / positive left. Severe tenderness over the Sacroiliac joint on the Right / Left sides Gaenslen test: positive bilaterally Seated flexion test: positive bilaterally. Sacral spine : Severe tenderness over the Sacroiliac joint: right side / left side Range of motion: Flexion of the lumbar spine <60 degrees Range of motion: Extension of the lumbar spine <20 degrees Gaenslen's Test positive Virgil's Test positive Gerri test: positive right side / left side Thigh Thrust Test Sacral Thrust Test Imaging: MRI noncontrast of the lumbar spine from 12/02/21 reviewed Assessment/ Plan : L2-L4 spinal stenosis, Lumbar spondylosis Recommendation of MAGDALENA L3-4. May need a series fo injections for optimal pain relief. Risks, benefits of procedure discussed and patient verbalized understanding. Admits to aspirin or anti- coagulant use or medical history of diabetes. Protocol for discontinuation/ continuation of medications juliocesar procedure discussed. Minimal anesthesia provided, if clinically indicated, consisting of Versed and Fentanyl. Discussed IV sedation and pt stated she is willing to cover $300 out of pocket costs for procedure. All questions answered. I have spent greater than 30 minutes on patient care today. Dr Lacey was available by phone for the evaluation of this patient. The time was used to review the medical records including relevant urine studies and Prescription history (MAPs), review of the available imaging, evaluation and examination of the patient, coordination of care with the medical staff and if applicable referring physicians, as well as creation of the medical record PQRS Narrative: Smoking Status Current every day smoker Home Medications: Ambulatory Orders ALPRAZolam [Xanax] 0.5 mg PO BID PRN 07/03/19 Acetaminophen [Tylenol Extra Strength] 1,000 mg PO DIRECTED PRN 07/03/19 Escitalopram [Lexapro] 20 mg PO HS 07/03/19 Famotidine [Pepcid] 40 mg PO HS 07/03/19 Fremanezumab-Vfrm [Ajovy] 225 mg SQ DIRECTED 07/03/19 Hemp Cream (Unknown Dose) 1 applic TOPICAL DIRECTED PRN 07/03/19 Ibuprofen [Motrin] 800 mg PO Q8H PRN 07/03/19 Rizatriptan Benzoate [Maxalt] 10 mg PO TID PRN 07/03/19 atenoloL [Tenormin] 100 mg PO HS 07/03/19 Docusate [Colace] 100 mg PO BID #20 capsule 07/05/19 HYDROcodone/APAP 5-325MG [[place] 5-325] 1 tab PO Q6HR PRN #10 tab 07/05/19 Controlled Substance Measures - Controlled Substance Measures Is patient prescribed a controlled substance at discharge?: No
[2022-07-14 15:04] VITALS: BP 170/80; PULSE 79; RESP 18
== END ==
LOC: PNWHC3 13:26
PROVIDERS: ATTEND Specialist
DX: M48.061 Spinal stenosis, lumbar region without neurogenic claudication (principal); Z86.718 Personal history of other venous thrombosis and embolism; M47.816 Spondylosis without myelopathy or radiculopathy, lumbar region; K21.9 Gastro-esophageal reflux disease without esophagitis; I10 Essential (primary) hypertension; M19.90 Unspecified osteoarthritis, unspecified site; F41.9 Anxiety disorder, unspecified; F32.0 Major depressive disorder, single episode, mild; F17.200 Nicotine dependence, unspecified, uncomplicated
CPT/HCPCS: 99211

== ENCOUNTER 2022-07-15 12:17 | Inpatient (IN) | payer MEDICARE ==
[2022-07-15] MEDS ORDERED: SODIUM CHLORIDE 0.9% 1,000 ML IV STA (13:00)
[2022-07-15] MEDS ORDERED: LABETALOL 5 MG/ML VIAL MDV IVP STA ×3 (13:04→15:30)
--- NOTE | 2022-07-15 13:06 | ED ---
Recheck HPI - General Chief Complaint: Recheck/Abnormal Lab/Rx Stated Complaint: headache, hypertension Time Seen by Provider: 07/15/22 12:23 Source: patient, EMS, RN notes reviewed, old records reviewed Mode of arrival: EMS Limitations: no limitations - History of Present Illness Initial Comments: This is a 66-year-old female to the emergency department for evaluation, patient presents today for evaluation regards to elevated blood pressure persistently elevated blood pressure who was seen in the ER last night for the same. Patient is no travel history no sick contacts no other significant complaints. No other current significant problems. Patient's blood pressure is not more improved MD Complaint: other (Persistently elevated blood pressure) -: unknown Returns Today for: other (Pressure significantly worsening) Symptoms Since Prior Visit: no new symptoms Context: planned re-check Associated Symptoms: none Treatments Prior to Arrival: other (Blood pressure medication) - Related Data Home Medications Medication Instructions Recorded Confirmed ALPRAZolam [Xanax] 0.5 mg PO DAILY PRN 07/03/19 07/15/22 Escitalopram [Lexapro] 20 mg PO DAILY 07/03/19 07/15/22 Famotidine [Pepcid] 20 mg PO BID 07/03/19 07/15/22 Rizatriptan Benzoate [Maxalt] 10 mg PO BID PRN 07/03/19 07/15/22 atenoloL [Tenormin] 100 mg PO DAILY 07/03/19 07/15/22 Bc Powder (Aspirin 845mg/Caffine 1 packet PO Q6H PRN 07/15/22 07/15/22 65mg) HYDROcodone/APAP 10-325MG [[place] 1 tab PO Q6HR PRN 07/15/22 07/15/22 10-325] Allergies Allergy/AdvReac Type Severity Reaction Status Date / Time No Known Allergies Allergy Verified 07/15/22 14:02 Review of Systems ROS Statement: Those systems with pertinent positive or pertinent negative responses have been documented in the HPI. ROS Other: All systems not noted in ROS Statement are negative. Past Medical History Past Medical History: Deep Vein Thrombosis (DVT), GERD/Reflux, Hypertension, Liver Disease, Osteoarthritis (OA) Additional Past Medical History / Comment(s): Hx migraines, had inj 1 month ago. DVT ankle as teen. "Borderline" DM. Hep C 2002, had tx. [facility], last cortisone inj 02/2019 est. Varicose veins. "Sludge" in gallbladder. History of Any Multi-Drug Resistant Organisms: None Reported Past Surgical History: Back Surgery, Tubal Ligation Additional Past Surgical History / Comment(s): Atopic preg, cyst on ovary, removal tube. Miscarriage, D&C; x2. Back surg x3, 1991, 1992 x2 - Lumbar Laminectomy. Past Anesthesia/Blood Transfusion Reactions: Motion Sickness Past Psychological History: Anxiety, Depression Smoking Status: Current every day smoker Past Alcohol Use History: Occasional, Rare Past Drug Use History: Marijuana - Past Family History Father Family Medical History: Coronary Artery Disease (CAD) General Exam Limitations: no limitations General appearance: alert, in no apparent distress Head exam: Present: atraumatic, normocephalic, normal inspection Eye exam: Present: normal appearance, PERRL, EOMI. Absent: scleral icterus, conjunctival injection, periorbital swelling ENT exam: Present: normal exam, mucous membranes moist Neck exam: Present: normal inspection. Absent: tenderness, meningismus, lymphadenopathy Respiratory exam: Present: normal lung sounds bilaterally. Absent: respiratory distress, wheezes, rales, rhonchi, stridor Cardiovascular Exam: Present: regular rate, normal rhythm, normal heart sounds. Absent: systolic murmur, diastolic murmur, rubs, gallop, clicks GI/Abdominal exam: Present: soft, normal bowel sounds. Absent: distended, tenderness, guarding, rebound, rigid Extremities exam: Present: normal inspection, full ROM, normal capillary refill. Absent: tenderness, pedal edema, joint swelling, calf tenderness Back exam: Present: normal inspection Neurological exam: Present: alert, oriented X3, CN II-XII intact Psychiatric exam: Present: normal affect, normal mood Skin exam: Present: warm, dry, intact, normal color. Absent: rash Course Vital Signs 07/15/22 07/15/22 07/15/22 12:19 12:41 13:36 Temperature 98 F Pulse Rate 86 83 89 Respiratory 16 18 16 Rate Blood Pressure 224/114 215/116 222/110 O2 Sat by Pulse 98 97 98 Oximetry 07/15/22 07/15/22 07/15/22 14:22 14:59 16:35 Temperature Pulse Rate 92 85 86 Respiratory 18 18 Rate Blood Pressure 234/123 197/98 174/83 O2 Sat by Pulse 99 97 Oximetry - Reevaluation(s) Reevaluation #1: 07/15/22 17:00 Medical record is reviewed Reevaluation #2: 07/15/22 17:00 Patient informed results and questions answered Reevaluation #3: 07/15/22 17:00 Patient's blood pressure and symptoms are improved Reevaluation #4: 07/15/22 17:00 Was pt. sent in by a medical professional or institution? @ -no Did you speak to anyone other than the patient for history? @ -no Did you review nursing and triage notes? @ -agree Were old charts reviewed? @ -no Differential Diagnosis? @ -prior EKG interpreted by me (3pts min.)? @ -yes X-rays interpreted by me (1pt min.)? @ -no CT interpreted by me (1pt min.)? @ -no U/S interpreted by me (1pt. min.)? @ -no What testing was considered but not performed? (CT, X-rays, U/S, labs)? Why? @ -no What meds were considered but not given? Why? @ -no Did you discuss the management of the patient with other professionals? @ -no Did you reconcile home meds? @ -no Was smoking cessation discussed for >3mins.? @ -no Was critical care preformed (if so, how long)? @ -no Were there social determinants of health that impacted care today? How? (Homelessness, low income, unemployed, alcoholism, drug addiction, tr ansportation, low edu. Level, literacy, decrease access to med. care, fdc, rehab)? @ -no Was there de-escalation of care discussed even if they declined? (Discuss DNR or withdrawal of care, Hospice)? @ -no What co-morbidities impacted this encounter? (DM, HTN, Smoking, COPD, CAD, Cancer, CVA, Hep., AIDS, mental health diagnosis, sleep apnea, morbid obesity)? @ -no Was patient admitted / discharged? @ -dc Undiagnosed new problem with uncertain prognosis? @ -no Drug Therapy requiring intensive monitoring for toxicity (Heparin, Nitro, Insulin, Cardizem)? @ -no Were any procedures done? @ -no Diagnosis/symptom? @ -Hypertensive urgency Acute, or Chronic, or Acute on Chronic? @ -acute on chronic Uncomplicated (without systemic symptoms) or Complicated (systemic symptoms)? @ -no Side effects of treatment? @ -no Exacerbation, Progression, or Severe Exacerbation] @ -Progression Poses a threat to life or bodily function? @ -no - Consultations Consultation #1: Spoke with Dr. Monge regarding symptoms, agreeable for admission Medical Decision Making - Medical Decision Making 58 female DF for evaluation of progressive hypertension, current hypertensive urgency without symptoms. Patient will be admitted for blood pressure control - Lab Data Result diagrams: 07/15/22 13:12 07/15/22 13:12 Lab Results 07/15/22 07/15/22 07/15/22 Range/Units 13:12 13:12 13:12 WBC 11.8 H (3.8-10.6) k/uL RBC 4.55 (3.80-5.40) m/uL Hgb 14.5 (11.4-16.0) gm/dL Hct 43.0 (34.0-46.0) % MCV 94.6 (80.0-100.0) fL MCH 31.9 (25.0-35.0) pg MCHC 33.8 (31.0-37.0) g/dL RDW 13.1 (11.5-15.5) % Plt Count 296 (150-450) k/uL MPV 8.8 Neutrophils % 88 % Lymphocytes % 8 % Monocytes % 3 % Eosinophils % 1 % Basophils % 0 % Neutrophils # 10.3 H (1.3-7.7) k/uL Lymphocytes # 0.9 L (1.0-4.8) k/uL Monocytes # 0.3 (0-1.0) k/uL Eosinophils # 0.1 (0-0.7) k/uL Basophils # 0.0 (0-0.2) k/uL PT 10.2 (9.0-12.0) sec INR 1.0 (<1.2) APTT 23.3 (22.0-30.0) sec Sodium 136 L (137-145) mmol/L Potassium 4.1 (3.5-5.1) mmol/L Chloride 103 (98-107) mmol/L Carbon Dioxide 24 (22-30) mmol/L Anion Gap 9 mmol/L BUN 10 (7-17) mg/dL Creatinine 0.62 (0.52-1.04) mg/dL Est GFR (CKD-EPI)AfAm >90 (>60 ml/min/1.73 sqM) Est GFR (CKD-EPI)NonAf >90 (>60 ml/min/1.73 sqM) Glucose 166 H (74-99) mg/dL Calcium 9.0 (8.4-10.2) mg/dL Phosphorus 3.1 (2.5-4.5) mg/dL Magnesium 1.7 (1.6-2.3) mg/dL Total Bilirubin 0.4 (0.2-1.3) mg/dL AST 22 (14-36) U/L ALT 16 (4-34) U/L Alkaline Phosphatase 87 (38-126) U/L Troponin I (0.000-0.034) ng/mL NT-Pro-B Natriuret Pep pg/mL Total Protein 7.7 (6.3-8.2) g/dL Albumin 4.2 (3.5-5.0) g/dL TSH 3.340 (0.465-4.680) mIU/L Urine Color Urine Appearance (Clear) Urine pH (5.0-8.0) Ur Specific [place] (1.001-1.035) Urine Protein (Negative) Urine Glucose (UA) (Negative) Urine Ketones (Negative) Urine Blood (Negative) Urine Nitrite (Negative) Urine Bilirubin (Negative) Urine Urobilinogen (<2.0) mg/dL Ur Leukocyte Esterase (Negative) Amorphous Sediment (None) /hpf 07/15/22 07/15/22 07/15/22 Range/Units 13:12 13:12 13:15 WBC (3.8-10.6) k/uL RBC (3.80-5.40) m/uL Hgb (11.4-16.0) gm/dL Hct (34.0-46.0) % MCV (80.0-100.0) fL MCH (25.0-35.0) pg MCHC (31.0-37.0) g/dL RDW (11.5-15.5) % Plt Count (150-450) k/uL MPV Neutrophils % % Lymphocytes % % Monocytes % % Eosinophils % % Basophils % % Neutrophils # (1.3-7.7) k/uL Lymphocytes # (1.0-4.8) k/uL Monocytes # (0-1.0) k/uL Eosinophils # (0-0.7) k/uL Basophils # (0-0.2) k/uL PT (9.0-12.0) sec INR (<1.2) APTT (22.0-30.0) sec Sodium (137-145) mmol/L Potassium (3.5-5.1) mmol/L Chloride (98-107) mmol/L Carbon Dioxide (22-30) mmol/L Anion Gap mmol/L BUN (7-17) mg/dL Creatinine (0.52-1.04) mg/dL Est GFR (CKD-EPI)AfAm (>60 ml/min/1.73 sqM) Est GFR (CKD-EPI)NonAf (>60 ml/min/1.73 sqM) Glucose (74-99) mg/dL Calcium (8.4-10.2) mg/dL Phosphorus (2.5-4.5) mg/dL Magnesium (1.6-2.3) mg/dL Total Bilirubin (0.2-1.3) mg/dL AST (14-36) U/L ALT (4-34) U/L Alkaline Phosphatase (38-126) U/L Troponin I <0.012 (0.000-0.034) ng/mL NT-Pro-B Natriuret Pep 203 pg/mL Total Protein (6.3-8.2) g/dL Albumin (3.5-5.0) g/dL TSH (0.465-4.680) mIU/L Urine Color Light Yellow Urine Appearance Clear (Clear) Urine pH 6.5 (5.0-8.0) Ur Specific [place] 1.007 (1.001-1.035) Urine Protein 1+ H (Negative) Urine Glucose (UA) Negative (Negative) Urine Ketones Negative (Negative) Urine Blood Negative (Negative) Urine Nitrite Negative (Negative) Urine Bilirubin Negative (Negative) Urine Urobilinogen <2.0 (<2.0) mg/dL Ur Leukocyte Esterase Trace H (Negative) Amorphous Sediment Rare H (None) /hpf - EKG Data -: EKG Interpreted by Me (EKG shows sinus 84 MS 174 QRS 71 QTc 405) Disposition Clinical Impression: Hypertensive urgency Disposition: ADMITTED IP TO THIS HOSP Condition: Good Is patient prescribed a controlled substance at d/c from ED?: No Time of Disposition: 15:25
[2022-07-15 13:28] LABS: Basophils % (A) 0 %; Eosinophils # (A) 0.1 k/uL (0-0.7); Eosinophils % (A) 1 %; HGB 14.5 gm/dL (11.4-16.0); Lymphocytes # (A) 0.9 k/uL (1.0-4.8); Lymphocytes % (A) 8 %; MCH 31.9 pg (25.0-35.0); MCHC 33.8 g/dL (31.0-37.0); MCV 94.6 fL (80.0-100.0); Mean Platelet Volume 8.8; Monocytes # (A) 0.3 k/uL (0-1.0); Monocytes % (A) 3 %; Neutrophils # (A) 10.3 k/uL (1.3-7.7); Neutrophils % (A) 88 %; Platelet Count 296 k/uL (150-450); RBC 4.55 m/uL (3.80-5.40); RDW 13.1 % (11.5-15.5); WBC 11.8 k/uL (3.8-10.6)
[2022-07-15 13:42] LABS: ALT 16 U/L (4-34); AST 22 U/L (14-36); African American GFR (CKD) >90 (>60 ml/min/1.73 sqM); Albumin 4.2 g/dL (3.5-5.0); Alkaline Phosphatase 87 U/L (38-126); Anion Gap 9 mmol/L; Blood Urea Nitrogen 10 mg/dL (7-17); Carbon Dioxide 24 mmol/L (22-30); Chloride 103 mmol/L (98-107); Glucose 166 mg/dL (74-99); Magnesium 1.7 mg/dL (1.6-2.3); Non-African American GFR(CKD) >90 (>60 ml/min/1.73 sqM); Phosphorus 3.1 mg/dL (2.5-4.5); Potassium 4.1 mmol/L (3.5-5.1); Sodium 136 mmol/L (137-145); Total Bilirubin 0.4 mg/dL (0.2-1.3); Total Protein 7.7 g/dL (6.3-8.2)
[2022-07-15 13:49] LABS: Partial Thromboplastin Time 23.3 sec (22.0-30.0); Prothrombin Time 10.2 sec (9.0-12.0)
[2022-07-15 14:52] LABS: Amorphous Sediment,Urine Rare /hpf; Appearance,Urine Clear (Clear); Bilirubin,Urine Negative (Negative); Blood,Urine Negative (Negative); Color,Urine Light Yellow; Glucose,Urine (UA) Negative (Negative); Ketones,Urine Negative (Negative); Leukocyte Esterase,Urine Trace (Negative); Nitrite,Urine Negative (Negative); PH, Urine 6.5 (5.0-8.0); Protein,Urine 1+ (Negative); Specific Gravity,Urine 1.007 (1.001-1.035); Urobilinogen,Urine <2.0 mg/dL (<2.0)
[2022-07-15] MEDS ORDERED: MORPHINE SULFATE 4 MG/ML SYRINGE IV PRN (15:29)
[2022-07-15] MEDS ORDERED: ONDANSETRON 4 MG/2 ML VIAL IVP PRN (15:29)
[2022-07-15] MEDS ORDERED: NALOXONE 0.4 MG/ML 1 ML VIAL IV PRN (15:29)
[2022-07-15] MEDS ORDERED: cloNIDine HCL 0.1 MG TAB PO STA (15:30)
[2022-07-15] MEDS: SODIUM CHLORIDE 0.9% 1,000 ML IV SCH (16:44)
[2022-07-15] MEDS ORDERED: SUMAtriptan succinate 50 MG TAB PO PRN (21:15)
[2022-07-15] MEDS ORDERED: ASPIRIN 325 MG TAB PO STA (21:18)
[2022-07-15] MEDS: ESCITALOPRAM 20 MG TAB PO SCH (21:34)
[2022-07-15] MEDS: ALPRAZolam 0.5 MG TAB PO PRN (21:34)
[2022-07-15] MEDS: FAMOTIDINE 20 MG TAB PO SCH (21:34)
[2022-07-15] MEDS: atenoloL 50 MG TAB PO SCH (21:34)
[2022-07-16] MEDS: SODIUM CHLORIDE 0.9% 1,000 ML IV SCH ×2 (05:54→20:18)
[2022-07-16] MEDS: FAMOTIDINE 20 MG TAB PO SCH ×2 (08:37→20:12)
[2022-07-16] MEDS: amLODIPine 5 MG TAB PO SCH (08:37)
[2022-07-16] MEDS: hydrALAZINE HCL 25 MG TAB PO SCH ×2 (08:37→20:12)
[2022-07-16] MEDS: ALPRAZolam 0.5 MG TAB PO PRN (08:38)
--- NOTE | 2022-07-16 08:52 | P.HPIM ---
History of Present Illness H&P Date: 07/16/22 Chief Complaint: Hypertensive urgency This is a 66-year-old black female essentially admitted for hypertensive urgency. Blood pressure was significant elevated 200/100. The patient states headache. No chest pain shortness of breath no syncopal episodes. We had a long discussion regarding dietary modifications as she has a penchant to eat potato chips. Review of Systems Constitutional: Denies chills, Denies fever Eyes: denies blurred vision, denies pain Ears, nose, mouth and throat: Denies headache, Denies sore throat Cardiovascular: Reports high blood pressure, Denies chest pain, Denies edema, Denies shortness of breath, Denies syncope Gastrointestinal: Denies abdominal pain, Denies diarrhea, Denies nausea, Denies vomiting Genitourinary: Denies dysuria, Denies hematuria Neurological: Reports headaches Psychiatric: Denies anxiety, Denies depression Past Medical History Past Medical History: Deep Vein Thrombosis (DVT), GERD/Reflux, Hypertension, Liver Disease, Osteoarthritis (OA) Additional Past Medical History / Comment(s): Hx migraines, had inj 1 month ago. DVT ankle as teen. "Borderline" DM. Hep C 2002, had tx. [facility], last cortisone inj 02/2019 est. Varicose veins. "Sludge" in gallbladder. History of Any Multi-Drug Resistant Organisms: None Reported Past Surgical History: Back Surgery, Tubal Ligation Additional Past Surgical History / Comment(s): Atopic preg, cyst on ovary, removal tube. Miscarriage, D&C; x2. Back surg x3, 1990, 1992 x2 - Lumbar Laminectomy. Past Anesthesia/Blood Transfusion Reactions: Motion Sickness Past Psychological History: Anxiety, Depression Smoking Status: Current every day smoker Past Alcohol Use History: Occasional, Rare Additional Past Alcohol Use History / Comment(s): Smoking on/off beginning at age 16, currently since 2002, 1/2 ppd Past Drug Use History: Marijuana Additional Drug Use History / Comment(s): Occ marijuana edibles. Hemp cream use occ. - Past Family History Father Family Medical History: Coronary Artery Disease (CAD) Medications and Allergies Home Medications Medication Instructions Recorded Confirmed Type ALPRAZolam [Xanax] 0.5 mg PO DAILY PRN 07/03/19 07/15/22 History Escitalopram [Lexapro] 20 mg PO DAILY 07/03/19 07/15/22 History Famotidine [Pepcid] 20 mg PO BID 07/03/19 07/15/22 History Rizatriptan Benzoate [Maxalt] 10 mg PO BID PRN 07/03/19 07/15/22 History atenoloL [Tenormin] 100 mg PO DAILY 07/03/19 07/15/22 History Bc Powder (Aspirin 845mg/Caffine 1 packet PO Q6H PRN 07/15/22 07/15/22 History 65mg) HYDROcodone/APAP 10-325MG [[place] 1 tab PO Q6HR PRN 07/15/22 07/15/22 History 10-325] Allergies Allergy/AdvReac Type Severity Reaction Status Date / Time No Known Allergies Allergy Verified 07/15/22 14:02 Physical Exam Vitals: Vital Signs Temp Pulse Pulse Resp BP BP Pulse Ox 07/16/22 07:00 98.2 F 76 16 166/80 96 07/16/22 02:00 97.4 F L 60 15 166/79 98 07/15/22 19:45 92 18 161/87 97 07/15/22 16:35 86 18 174/83 97 07/15/22 14:59 85 197/98 07/15/22 14:22 92 18 234/123 99 07/15/22 13:36 89 16 222/110 98 07/15/22 12:41 83 18 215/116 97 07/15/22 12:19 98 F 86 16 224/114 98 Intake and Output 07/15/22 07/16/22 07/16/22 22:59 06:59 14:59 Other: # Voids 0 1 Weight 86.183 kg - Constitutional General appearance: no acute distress - EENT Eyes: EOMI - Neck Neck: no lymphadenopathy - Respiratory Respiratory: bilateral: CTA - Cardiovascular Rhythm: regular Heart sounds: normal: S1, S2 - Gastrointestinal General gastrointestinal: soft, no tenderness - Psychiatric Psychiatric: A&O x's 3 Results CBC & Chem 7: 07/15/22 13:12 07/15/22 13:12 Labs: Abnormal Lab Results - Last 24 Hours (Table) 07/15/22 07/15/22 07/15/22 Range/Units 13:12 13:12 13:15 WBC 11.8 H (3.8-10.6) k/uL Neutrophils # 10.3 H (1.3-7.7) k/uL Lymphocytes # 0.9 L (1.0-4.8) k/uL Sodium 136 L (137-145) mmol/L Glucose 166 H (74-99) mg/dL Urine Protein 1+ H (Negative) Ur Leukocyte Esterase Trace H (Negative) Amorphous Sediment Rare H (None) /hpf Assessment and Plan (1) Hypertensive urgency Current Visit: Yes Status: Acute Code(s): I16.0 - HYPERTENSIVE URGENCY SNOMED Code(s): 295187139 (2) Migraine aura without headache Current Visit: No Status: Acute Code(s): G43.109 - MIGRAINE WITH AURA, NOT INTRACTABLE, W/O STATUS MIGRAINOSUS SNOMED Code(s): 851076722 Plan: I will go ahead and add Norvasc and hydralazine. Reconcile medications otherwise. Dietary counseling given at length. Check CBC and CMP in a.m. See orders otherwise.
[2022-07-16] MEDS ORDERED: ASPIRIN 325 MG TAB PO PRN (09:00)
[2022-07-16] MEDS: ASPIRIN 325 MG TAB PO PRN (18:14)
[2022-07-16] MEDS: atenoloL 50 MG TAB PO SCH (20:12)
[2022-07-16] MEDS: ESCITALOPRAM 20 MG TAB PO SCH (20:12)
[2022-07-16] MEDS: HYDROcodone/APAP 10-325MG 1 EACH TAB PO PRN (20:14)
[2022-07-17 07:57] LABS: HCT 39.9 % (34.0-46.0); HGB 13.5 gm/dL (11.4-16.0); MCH 32.5 pg (25.0-35.0); MCHC 33.7 g/dL (31.0-37.0); MCV 96.2 fL (80.0-100.0); Mean Platelet Volume 8.2; Platelet Count 288 k/uL (150-450); RBC 4.15 m/uL (3.80-5.40); RDW 13.1 % (11.5-15.5); WBC 7.1 k/uL (3.8-10.6)
[2022-07-17 08:16] LABS: ALT 16 U/L (4-34); AST 23 U/L (14-36); African American GFR (CKD) >90 (>60 ml/min/1.73 sqM); Albumin 3.5 g/dL (3.5-5.0); Albumin/Globulin Ratio 1.1; Alkaline Phosphatase 70 U/L (38-126); Anion Gap 7 mmol/L; Blood Urea Nitrogen 13 mg/dL (7-17); Calcium 8.4 mg/dL (8.4-10.2); Carbon Dioxide 24 mmol/L (22-30); Chloride 105 mmol/L (98-107); Globulin 3.1 g/dL; Glucose 120 mg/dL (74-99); Non-African American GFR(CKD) 87 (>60 ml/min/1.73 sqM); Potassium 3.9 mmol/L (3.5-5.1); Sodium 136 mmol/L (137-145); Total Bilirubin 0.6 mg/dL (0.2-1.3); Total Protein 6.6 g/dL (6.3-8.2)
[2022-07-17] MEDS: hydrALAZINE HCL 25 MG TAB PO SCH ×2 (08:50→21:05)
[2022-07-17] MEDS: FAMOTIDINE 20 MG TAB PO SCH ×2 (08:50→21:05)
[2022-07-17] MEDS: amLODIPine 5 MG TAB PO SCH (08:50)
[2022-07-17] MEDS: HYDROcodone/APAP 10-325MG 1 EACH TAB PO PRN ×2 (10:13→21:09)
[2022-07-17] MEDS: SODIUM CHLORIDE 0.9% 1,000 ML IV SCH (10:19)
--- NOTE | 2022-07-17 15:54 | PN ---
PROGRESS NOTE DATE OF SERVICE: 07/17/2022 I am covering for Dr. Monge. SUBJECTIVE: This 66-year-old woman was admitted with hypertensive urgency. She is complaining of some headache. No chest pain. No palpitations. No fever. Blood pressure is improving. OBJECTIVE: VITAL SIGNS: Pulse 65, blood pressure 150/70, respirations 18. CHEST: Clear to auscultation. CARDIOVASCULAR: S1 and S2. ABDOMEN: Soft. NERVOUS SYSTEM: Nonfocal. LABORATORY DATA: Reviewed. ASSESSMENT: 1. Hypertensive urgency. 2. Migraine aura without headache. 3. Multiple medical issues. RECOMMENDATIONS: Recommend to continue current management and symptomatic treatment. Otherwise, we will add Tylenol No. 3 p.r.n. for headaches and resume the home medications. Guarded prognosis. Further recommendations to follow. Increase the Norvasc to 10 mg. MMODL / IJN: [id number] /
[2022-07-17] MEDS: ALPRAZolam 0.5 MG TAB PO PRN (21:04)
[2022-07-17] MEDS: ESCITALOPRAM 20 MG TAB PO SCH (21:05)
[2022-07-17] MEDS: atenoloL 50 MG TAB PO SCH (21:10)
[2022-07-18] MEDS: SODIUM CHLORIDE 0.9% 1,000 ML IV SCH ×3 (02:39→23:20)
[2022-07-18] MEDS: FAMOTIDINE 20 MG TAB PO SCH ×2 (08:47→20:09)
[2022-07-18] MEDS: hydrALAZINE HCL 25 MG TAB PO SCH ×2 (08:47→20:08)
[2022-07-18] MEDS: amLODIPine 10 MG TAB PO SCH (08:47)
[2022-07-18 09:25] LABS: Basophils # (A) 0.04 X 10*3/uL (0.00-0.10); Basophils % (A) 0.6 %; Eosinophils # (A) 0.22 X 10*3/uL (0.04-0.35); Eosinophils % (A) 3.3 %; HCT 40.5 % (37.2-46.3); HGB 13.5 g/dL (12.0-15.0); Immature Grans, Automated 0.2 %; Lymphocytes # (A) 2.67 X 10*3/uL (0.90-5.00); Lymphocytes % (A) 40.5 %; MCH 31.5 pg (27.0-32.0); MCHC 33.3 g/dL (32.0-37.0); MCV 94.6 fL (80.0-97.0); Mean Platelet Volume 10.8 fL (9.5-12.2); Monocytes % (A) 10.6 %; NRBC Per 100 WBC 0 /100 WBCS (0.0-0.0); Neutrophils # (A) 2.96 X 10*3/uL (1.80-7.70); Neutrophils % (A) 44.8 %; Platelet Count 288 X 10*3/uL (140-440); RBC 4.28 X 10*6/uL (4.10-5.20); RDW 13.3 % (11.5-14.5)
[2022-07-18 10:39] LABS: African American GFR (CKD) 103.2 (60.0-200.0); Anion Gap 7.9 mmol/L (10.00-18.00); BUN/Creat Ratio 16.43 Ratio (12.00-20.00); Blood Urea Nitrogen 11.5 mg/dL (9.0-27.0); Calcium 8.8 mg/dL (8.7-10.3); Carbon Dioxide 26.1 mmol/L (20.0-27.5); Potassium 4.4 mmol/L (3.5-5.5)
[2022-07-18] MEDS: HYDROcodone/APAP 10-325MG 1 EACH TAB PO PRN (16:02)
[2022-07-18] MEDS: ASPIRIN 325 MG TAB PO PRN (20:08)
[2022-07-18] MEDS: ESCITALOPRAM 20 MG TAB PO SCH (20:09)
[2022-07-18] MEDS: atenoloL 50 MG TAB PO SCH (20:09)
[2022-07-18] MEDS: ALPRAZolam 0.5 MG TAB PO PRN (20:09)
[2022-07-19 02:36] VITALS: TEMP 97.9
--- NOTE | 2022-07-19 02:58 | PN ---
PROGRESS NOTE DATE OF SERVICE: 07/18/2022 SUBJECTIVE: I am covering for Dr. Monge. This is a 66-year-old woman who was admitted with hypertension, hypertensive urgency, blood pressure elevated, and the patient is still not feeling well according to her, no fever, no cough. OBJECTIVE: VITAL SIGNS: Pulse 61, blood pressure 151/86, respirations 18. CHEST: Clear to auscultation. CARDIOVASCULAR: S1 and S2. ABDOMEN: Soft. NERVOUS SYSTEM: No focal deficits. LABORATORY DATA: Labs are reviewed. ASSESSMENT: 1. Hypertensive urgency. 2. Migraine aura without headache. 3. Multiple medical issues. RECOMMENDATIONS: Recommend to continue current symptomatic treatment. Otherwise, I would recommend to monitor closely and increase ambulation and Dr. Monge will follow tomorrow. MMODL / IJN: [id number] /
[2022-07-19 08:02] VITALS: BP 122/65; PULSE 63; RESP 14
[2022-07-19] MEDS: amLODIPine 10 MG TAB PO SCH (08:26)
[2022-07-19] MEDS: FAMOTIDINE 20 MG TAB PO SCH (08:26)
[2022-07-19] MEDS: hydrALAZINE HCL 25 MG TAB PO SCH (08:26)
--- NOTE | 2022-07-19 08:50 | P.DS ---
Providers Date of admission: 07/17/22 10:45 Attending physician: Ruben Monge Primary care physician: Ruben Monge - Discharge Diagnosis(es) (1) Hypertensive urgency Current Visit: Yes Status: Acute (2) Migraine aura without headache Current Visit: No Status: Acute Hospital Course: This is a 66-year-old female who was admitted for hypertensive urgency. Blood pressure significantly elevated upon admission 200/100 and patient did have a headache. She was started on Norvasc and hydralazine and blood pressures have improved. Patient denies any further headache. Is feeling well and tolerating diet. Patient will be discharged today and scripts will be sent for hydralazine and Norvasc. She will follow up with Dr. Monge in the office on or Tuesday. Patient Condition at Discharge: Good Plan - Discharge Summary New Discharge Prescriptions: New amLODIPine [Norvasc] 10 mg PO DAILY #30 tab hydrALAZINE HCL [Apresoline] 25 mg PO BID #60 tab Continue ALPRAZolam [Xanax] 0.5 mg PO DAILY PRN PRN Reason: Anxiety atenoloL [Tenormin] 100 mg PO DAILY Escitalopram [Lexapro] 20 mg PO DAILY Famotidine [Pepcid] 20 mg PO BID Rizatriptan Benzoate [Maxalt] 10 mg PO BID PRN PRN Reason: Migraine Headache HYDROcodone/APAP 10-325MG [[place] 10-325] 1 tab PO Q6HR PRN PRN Reason: Pain Bc Powder (Aspirin 845mg/Caffine 65mg) 1 packet PO Q6H PRN PRN Reason: Headache Discharge Medication List ALPRAZolam [Xanax] 0.5 mg PO DAILY PRN 07/03/19 [History] Escitalopram [Lexapro] 20 mg PO DAILY 07/03/19 [History] Famotidine [Pepcid] 20 mg PO BID 07/03/19 [History] Rizatriptan Benzoate [Maxalt] 10 mg PO BID PRN 07/03/19 [History] atenoloL [Tenormin] 100 mg PO DAILY 07/03/19 [History] Bc Powder (Aspirin 845mg/Caffine 65mg) 1 packet PO Q6H PRN 07/15/22 [History] HYDROcodone/APAP 10-325MG [[place] 10-325] 1 tab PO Q6HR PRN 07/15/22 [History] amLODIPine [Norvasc] 10 mg PO DAILY #30 tab 07/19/22 [Rx] hydrALAZINE HCL [Apresoline] 25 mg PO BID #60 tab 07/19/22 [Rx] Follow up Appointment(s)/Referral(s): Ruben Monge MD [Primary Care Provider] - 3 Days Discharge Disposition: HOME SELF-CARE
== END 2022-07-19 13:03 | disposition home or self-care (01) | DRG 305 ==
LOC: EC 12:17 → 6NMEDSUR 15:29 → OBSVTOIN 07-17 10:45
PROVIDERS: ADMIT Family Medicine; ATTEND Family Medicine
DX: I16.0 Hypertensive urgency (principal); F17.210 Nicotine dependence, cigarettes, uncomplicated; I10 Essential (primary) hypertension; G43.109 Migraine with aura, not intractable, without status migrainosus; R73.03 Prediabetes; Z86.19 Personal history of other infectious and parasitic diseases; Z86.718 Personal history of other venous thrombosis and embolism; Z79.899 Other long term (current) drug therapy; Z82.49 Family history of ischemic heart disease and other diseases of the circulatory system
CPT/HCPCS: 36415; 80048; 80053; 81001; 83735; 83880; 84100; 84443; 84484; 85025; 85027; 85610; 85730; 93005; 94760; 96361; 96374; 96376; 99285

== ENCOUNTER → 2023-03-07 | Outpatient (CLI) | payer MEDICARE ==
--- NOTE | 2023-03-07 16:06 | XR ---
EXAMINATION TYPE: XR cervical spine 3 views limited DATE OF EXAM: 03/07/2023 Comparison: None Clinical History: 67-year-old female M54.2 Findings: Mild to moderate degenerative disc disease and endplate spondylosis C5-C7 levels. Facet and uncoverte bral joint arthropathy is also present. No predental space widening or prevertebral soft tissue swell ing. Alignment is maintained. Normal odontoid view. Impression: Mild to moderate spondylotic change especially mid to lower cervical spine. No malalignment.
== END | disposition home or self-care (01) ==
LOC: RADXRMAIN 15:26
PROVIDERS: ATTEND Family Medicine
DX: M54.2 Cervicalgia (principal); M47.812 Spondylosis without myelopathy or radiculopathy, cervical region
CPT/HCPCS: 72040

== ENCOUNTER 2023-04-12 12:01 | Day surgery (SDC) | payer MEDICARE ==
[2023-03-31 10:41] VITALS: BMI 29.8
[~2023-04-12 12:01] MED LIST changes: -ACETAMINOPHEN TAB 500 MG TAB PO ONE; -HEPARIN SODIUM,PORCINE 5,000 UNIT/ML 1 ML VIAL SQ ONE; +LACTATED RINGERS 1,000 ML IV SCH
[2023-04-12 13:05] VITALS: TEMP 80.8
[2023-04-12] MEDS ORDERED: IOPAMIDOL M200 10 ML VIAL ONE (13:52)
[2023-04-12] MEDS ORDERED: methylPREDNISolone ACETATE 80 MG/ML 1 ML VIAL ONE (13:52)
--- NOTE | 2023-04-12 14:02 | P.PCN ---
Date of Procedure: 04/12/23 Procedure(s) Performed: PREOPERATIVE DIAGNOSIS: 1- Lumbar Degenerative Disc Diseases 2-Lumbar spondylosis with Facet arthropathy without myelopathy. 3-lumbar spinal stenosis 4-lumbar postlaminectomy pain syndrome POSTOPERATIVE DIAGNOSIS: 1-lumbar degenerative disc disease. 2-lumbar spondylosis with facet arthropathy without myelopathy. 3-lumbar spinal stenosis. 4-lumbar postlaminectomy pain syndrome PROCEDURE 1. Lumbar epidural steroid injection under fluoroscopic guidance at the L3-4 level. (Fluoroscopy imaging was available in radiology department) 2. Lumbar epidurogram. ANESTHESIA: Lidocaine 1% 3 and then only. EBL: Minimal PROCEDURE INDICATION: The patient with low back pain and radiculitis symptoms unresponsive to conservative treatment. Fluoroscopy was used to optimize visualization of the needle placement and to maximize safety. PROCEDURE DESCRIPTION / TECHNIQUE: The patient was seen and identified in the preoperative area. Risks, benefits, complications including but not limited to infections ,bleeding ,allergic reaction to the medications ,nerve damage and not complete pain releife , and alternatives were discussed with the patient. The patient agreed to proceed with the procedure and signed the consent, and vital signs were stable. Patient was taken to the OR and time out was completed. The patient was placed in the prone position on procedure table and a pillow was placed under the abdomen to reduce lumbar lordosis. The lumbosacral area was prepped and draped in the usual sterile fashion.ere closely monitored during the procedure. Vital signs was monitered during the entire procedure. Using anterior-posterior fluoroscopy, the L3-4 interlaminar space was identified and the skin over this site was marked and then infiltrated with 1% lidocaine subcutaneously. Subsequently, a 20-gauge Tuohy epidural needle was inserted and advanced toward the epidural space using the ``Loss of resistance technique and guided by AP and lateral fluoroscopy. The correct needle position in the epidural space was verified with the injection of 2 mL of the water solu ble contrast dye Isovue 200 contrast and observing an excellent epidurogram with the epidural spread of the dye, after negative aspiration for blood and CSF and in the absence of paresthesias. Again after negative aspiration, a 6 ml mixture containing 60 mg of Depo-medrol ( Preservetive Free ), and 2 ml of preservative free Normal Saline, and 2 ml of preservative free lidocaine 1% solution was injected and a washout of epidurogram was seen. Needle was withdrawn intact, skin was cleansed, and bandages were applied. COMPLICATIONS: None DISPOSITION / PLANS: The patient was placed in a supine position and transferred to the recovery area in a stable condition for observation. There was no evidence of lower extremity motor or sensory deficit after the procedure. Patient was discharged from the recovery room after meeting discharge criteria. Home discharge instructions were given to the patient by the staff. The patient was reexamined prior to discharge. The patient will schedule a follow up in the clinic in 2-4 weeks.
--- NOTE | 2023-04-12 14:26 | FL ---
EXAMINATION TYPE: FL guided pain mgmt statistic Intraoperative/procedural fluoroscopic services were provided. Total fluoroscopy time is 4.3 seconds with a total of 1 submitted images to PACS. Please se e the operative/procedural note for further details. DAP: [id number] mGym2
[2023-04-12 14:38] VITALS: BP 133/73; PULSE 70; RESP 20
== END 2023-04-12 14:41 | disposition home or self-care (01) ==
LOC: ORPAIN 12:01
PROVIDERS: ATTEND Specialist
DX: M48.061 Spinal stenosis, lumbar region without neurogenic claudication (principal); M47.816 Spondylosis without myelopathy or radiculopathy, lumbar region; M51.36 Other intervertebral disc degeneration, lumbar region
CPT/HCPCS: 62323; J1040; Q9966

== ENCOUNTER → 2023-05-04 | Outpatient (CLI) | payer MEDICARE ==
[2023-05-04 13:21] VITALS: BP 114/72; PULSE 79; RESP 15; TEMP 98.6
--- NOTE | 2023-05-04 13:59 | P.PAINPG ---
PQRS Measure Charge Sheet Comment: HISTORY OF PRESENT ILLNESS: A 67 yr old female presents today w severe and chronic LBP secondary to DDD, spondylosis, and facet arthropathy without myelopathy for evaluation s/p MAGDALENA L3- 4 #1. Pt states she experienced 85 % pain relief x 3 wks s/p procedure. Pt states pain level is provoked at 6 /10 in intensity, constant, predominantly axial, localized in the mid lumbar spine, tender/ achy in character w occasional shooting pain towards hips, buttocks, BLEs and feet. Pain is provoked by standing/ walking/ sitting for periods > 15 min. Pain is alleviated by physician guided exercises 2-3 times weekly since Jan 2023, ice, medications, topicals, use of a cane for ambulatory assistance, ice, laying supine and rest. Oswestry axial pain score of 26. Interventional procedures include MAGDALENA L3-4 x1 Medications include [place], Neurontin, Ibu, Cannabis use REVIEW OF ORGAN SYSTEMS: CONSTITUTIONAL: No fevers or chills. No recent weight loss. NEUROLOGICAL: + numbness and tingling along the distal extremities. No seizure disorders or headaches. MUSCULOSKELETAL: + pain PSYCHIATRIC: Denies current depression or suicidal thoughts. Physical Examinations : Constitutional : Cooperative , not in acute distress . Neurologic : Cranial nerve II to XII intact. No focal neurological deficits. Psychiatric : alert & oriented x 3. Matching mood & appropriate affect. Judgment & insight intact. Musculoskeletal : Cervical Spine Motor strength in the deltoid and biceps: Normal right side. Normal Left side Motor strength biceps and the wrist extensors: Normal right side . Normal left side Motor strength in the triceps muscle: Normal right side. Normal left side Deep tendon reflexes: Normal at the biceps. Normal at Brachioradialis. Normal at triceps Vertebral body tenderness to deep palpation over Cervical facet loading test: positive bilaterally Spurling test: positive bilaterally Neck distraction test: positive bilaterally Armando sign: positive bilaterally Lumbar spine Motor strength lower extremities ,thigh and legs 5/5 Right side , 5/5 Left side Deep tendon reflexes : Normal Knee Jerk. Normal Ankle Jerk Vertebral body tenderness over L3 +Vides Test positive L3-L4 Lumbar facet Loading Test: positive Right / positive Left Range of motion of the lumbar spine Flexion 30 degrees, extension 10 degrees Straight Leg Raise test: Left/ Right positive at degree Gerri test: positive right / positive left. Severe tenderness over the Sacroiliac joint on the Right / Left sides Gaenslen test: positive bilaterally Seated flexion test: positive bilaterally. Sacral spine : Severe tenderness over the Sacroiliac joint: right side / left side Range of motion: Flexion of the lumbar spine <60 degrees Range of motion: Extension of the lumbar spine <20 degrees Gaenslen's Test positive Virgil's Test positive Gerri test: positive right side / left side Thigh Thrust Test Sacral Thrust Test Imaging: MRI noncontrast of the lumbar spine from 12/02/21 reviewed Assessment/ Plan : L2-L4 spinal stenosis, Lumbar spondylosis Recommendation of MAGDALENA L3-L4 #2. May need a series of injections for optimal pain relief. Risks, benefits of procedure discussed and patient verbalized understanding. Admits to aspirin or anti- coagulant use or medical history of diabetes. Protocol for discontinuation/ continuation of medications juliocesar procedure discussed. All questions answered. I have spent greater than 30 minutes on patient care today. Dr Lacey was available by phone for the evaluation of this patient. The time was used to review the medical records including relevant urine studies and Prescription history (MAPs), review of the available imaging, evaluation and examination of the patient, coordination of care with the medical staff and if applicable referring physicians, as well as creation of the medical record PQRS Narrative: Smoking Status Current every day smoker Hx Alcohol Use (MH) Yes Home Medications: Ambulatory Orders ALPRAZolam [Xanax] 0.5 mg PO DAILY PRN 07/03/19 Escitalopram [Lexapro] 20 mg PO DAILY 07/03/19 Famotidine [Pepcid] 20 mg PO BID 07/03/19 Rizatriptan Benzoate [Maxalt] 10 mg PO BID PRN 07/03/19 atenoloL [Tenormin] 100 mg PO DAILY 07/03/19 amLODIPine [Norvasc] 10 mg PO DAILY #30 tab 07/19/22 hydrALAZINE HCL [Apresoline] 25 mg PO BID #60 tab 07/19/22 Gabapentin 300 mg PO TID 03/31/23 Indomethacin [Indocin] 50 mg PO BID PRN 03/31/23 Nicotine 21Mg/24Hr Patch [Habitrol] 1 each TRANSDERM DAILY 03/31/23 allopurinoL 100 mg PO DAILY 03/31/23 Controlled Substance Measures - Controlled Substance Measures Is patient prescribed a controlled substance at discharge?: No
== END ==
LOC: PNWHC3 12:21
PROVIDERS: ATTEND Specialist
DX: M47.816 Spondylosis without myelopathy or radiculopathy, lumbar region (principal); M48.061 Spinal stenosis, lumbar region without neurogenic claudication; F17.200 Nicotine dependence, unspecified, uncomplicated; F12.90 Cannabis use, unspecified, uncomplicated
CPT/HCPCS: 99211

== ENCOUNTER 2023-05-24 12:33 | Day surgery (SDC) | payer MEDICARE ==
[2023-05-19 16:18] VITALS: BMI 28.2
--- NOTE | 2023-05-24 13:33 | P.PCN ---
Date of Procedure: 05/24/23 Description of Procedure: PREOPERATIVE DIAGNOSIS: lumbar radiculopathy POSTOPERATIVE DIAGNOSIS: Lumbar radiculopathy PROCEDURE 1. Lumbar epidural steroid injection under fluoroscopic guidance at the L3-L4 level. 2. Lumbar epidurogram. Imaging: Fluoroscopy was used, images where saved to the medical record ANESTHESIA: Patient re-evaluated immediately prior to sedation Local only EBL: Minimal PROCEDURE INDICATION: The patient with low back pain and radiculitis symptoms unresponsive to conservative treatment. Fluoroscopy was used to optimize visualization of the needle placement and to maximize safety. PROCEDURE DESCRIPTION / TECHNIQUE: The patient was seen and identified in the preoperative area. Risks, benefits, complications including but not limited to infections, bleeding, allergic reaction to medications, nerve damage and incomplete pain relief, as well as alternatives to the procedure were discussed with the patient. The patient agreed to proceed with the procedure and signed the consent. IV was started if indicated above, and vital signs were stable. Patient was taken to the OR and time out was completed. The patient was placed in the prone position on procedure table and a pillow was placed under the abdomen to reduce lumbar lordosis. The lumbosacral area was prepped and draped in the usual sterile fashion. Vitals were closely monitored during the procedure. Using anterior-posterior fluoroscopy, the L3-L4 interlaminar space was identified and the skin over this site was marked and then infiltrated with 1% lidocaine subcutaneously. Subsequently, a 20-gauge Tuohy epidural needle was inserted and advanced toward the epidural space using the Loss of resistance technique and guided by AP and lateral fluoroscopy. The correct needle position in the epidural space was verified with the injection of 1 mL of Omnipaque 180 contrast to observe an acceptable epidurogram, after negative aspiration for blood and CSF and in the absence of paresthesias. Again after negative aspiration, a 3 ml mixture containing 40mg of depomedrol and 2 ml of preservative free Normal Saline was injected and a washout of epidurogram was seen. Needle was withdrawn intact, skin was cleansed, and bandages were applied. COMPLICATIONS: None DISPOSITION / PLANS: The patient was placed in a supine position and transferred to the recovery area in a stable condition for observation. There was no evidence of lower extremity motor or sensory deficit after the procedure. Pat ient was discharged from the recovery room after meeting discharge criteria. Home discharge instructions were given to the patient by the staff. The patient was reexamined prior to discharge. The patient will follow up as directed.
[2023-05-24] MEDS ORDERED: methylPREDNISolone ACETATE 40 MG/ML 1 ML VIAL ONE (13:35)
[2023-05-24] MEDS ORDERED: IOPAMIDOL M200 10 ML VIAL ONE (13:35)
[2023-05-24 13:41] VITALS: RESP 16; TEMP 97.3
[2023-05-24] MEDS: ACETAMINOPHEN TAB 325 MG TAB PO ONE (14:10)
[2023-05-24] MEDS ORDERED: ACETAMINOPHEN TAB 325 MG TAB ONE (14:12)
--- NOTE | 2023-05-24 14:15 | FL ---
EXAMINATION TYPE: FL guided pain mgmt statistic DATE OF EXAM: 05/24/2023 HISTORY: Fluoroscopy time Total dose area product (DAP) in uGy*m?, mGy*cm? (or similar): 0.96977 IMPRESSION: 1. Fluoroscopy time.
[2023-05-24 14:17] VITALS: BP 123/73; PULSE 61
== END 2023-05-24 14:42 | disposition home or self-care (01) ==
LOC: ORPAIN 12:33
PROVIDERS: ATTEND Hospitalist
DX: M54.16 Radiculopathy, lumbar region (principal); Z79.82 Long term (current) use of aspirin
CPT/HCPCS: 62323; J1030; Q9966

== ENCOUNTER → 2023-07-06 | Outpatient (CLI) | payer MEDICARE ==
[2023-07-06 13:43] VITALS: BP 116/76; PULSE 71; RESP 16; TEMP 98
--- NOTE | 2023-07-06 15:51 | P.PAINPG ---
PQRS Measure Charge Sheet Comment: HISTORY OF PRESENT ILLNESS: A 67 yr old female presents today w severe and chronic LBP secondary to DDD, spondylosis, and facet arthropathy without myelopathy for evaluation s/p MAGDALENA L3- L4 #2. Pt states she experienced 65 % pain relief x 6 wks s/p procedure. Pt states pain level is provoked at 8 /10 in intensity, constant, predominantly axial, localized in the mid lumbar spine, tender/ achy in character w occasional shooting pain towards hips, buttocks, BLEs and feet. Pain is provoked by standing/ walking/ sitting for periods > 15 min. Pain is alleviated by physician guided exercises 2-3 times weekly since Jan 2023, ice, medications, topicals, use of a cane for ambulatory assistance, laying supine and rest. Oswestry axial pain score of 26. Pt also complains of neck pain secondary to DDD, spondylosis and facet arthropathy without myelopathy, 6/10 in intensity, predominantly axial, dull in character w occasional radiation of pain L & R of midline. Pain is provoked w rotation. Pain is relieved w massage, medications, topical, THC products, ice, repositioning and rest. Cervical disability score of 14. Interventional procedures include MAGDALENA L3-4 x2 Medications include [place], Neurontin, Ibu, Cannabis use REVIEW OF ORGAN SYSTEMS: CONSTITUTIONAL: No fevers or chills. No recent weight loss. NEUROLOGICAL: + numbness and tingling along the distal extremities. No seizure disorders or headaches. MUSCULOSKELETAL: + pain PSYCHIATRIC: Denies current depression or suicidal thoughts. Physical Examinations : Constitutional : Cooperative , not in acute distress . Neurologic : Cranial nerve II to XII intact. No focal neurological deficits. Psychiatric : alert & oriented x 3. Matching mood & appropriate affect. Judgment & insight intact. Musculoskeletal : Cervical Spine Motor strength in the deltoid and biceps: Normal right side. Normal Left side Motor strength biceps and the wrist extensors: Normal right side . Normal left side Motor strength in the triceps muscle: Normal right side. Normal left side Deep tendon reflexes: Normal at the biceps. Normal at Brachioradialis. Normal at triceps Vertebral body tenderness to deep palpation over Cervical facet loading test: positive bilaterally Spurling test: positive bilaterally Neck distraction test: positive bilaterally Armando sign: positive bilaterally Lumbar spine Motor strength lower extremities ,thigh and legs 5/5 Right side , 5/5 Left side Deep tendon reflexes : Normal Knee Jerk. Normal Ankle Jerk Vertebral body tenderness over L4 +Vides Test positive Lumbar facet Loading Test: positive Right / positive Left Range of motion of the lumbar spine Flexion 30 degrees, extension 10 degrees Straight Leg Raise test: Left/ Right positive at < 35 degrees Gerri test: positive right / positive left. Severe tenderness over the Sacroiliac joint on the Right / Left sides Gaenslen test: positive bilaterally Seated flexion test: positive bilaterally. Sacral spine : Severe tenderness over the Sacroiliac joint: right side / left side Range of motion: Flexion of the lumbar spine <60 degrees Range of motion: Extension of the lumbar spine <20 degrees Gaenslen's Test positive Virgil's Test positive Gerri test: positive right side / left side Thigh Thrust Test Sacral Thrust Test Imaging: MRI noncontrast of the lumbar spine from 12/02/21 reviewed Assessment/ Plan : L2-L4 spinal stenosis, Lumbar spondylosis, Cervical DDD PT w a focus on traction/ decompression x 6 wks M50.30 Recommendation of MAGDALENA L4-L5 #3. May need a series of injections for optimal pain relief. Risks, benefits of procedure discussed and patient verbalized understanding. Admits to aspirin or anti- coagulant use or medical history of diabetes. Protocol for discontinuation/ continuation of medications juliocesar procedure discussed. All questions answered. I have spent greater than 30 minutes on patient care today. Dr Lacey was available by phone for the evaluation of this patient. The time was used to review the medical records including relevant urine studies and Prescription history (MAPs), review of the available imaging, evaluation and examination of the patient, coordination of care with the medical staff and if applicable referring physicians, as well as creation of the medical record PQRS Narrative: Smoking Status Current every day smoker Hx Alcohol Use (MH) Yes Home Medications: Ambulatory Orders ALPRAZolam [Xanax] 0.5 mg PO DAILY PRN 07/03/19 Escitalopram [Lexapro] 20 mg PO DAILY 07/03/19 Famotidine [Pepcid] 20 mg PO HS 07/03/19 Rizatriptan Benzoate [Maxalt] 10 mg PO BID PRN 07/03/19 atenoloL [Tenormin] 100 mg PO HS 07/03/19 amLODIPine [Norvasc] 10 mg PO DAILY #30 tab 07/19/22 hydrALAZINE HCL [Apresoline] 25 mg PO BID #60 tab 07/19/22 Gabapentin 300 mg PO TID 03/31/23 Indomethacin [Indocin] 50 mg PO BID PRN 03/31/23 Nicotine 21Mg/24Hr Patch [Habitrol] 1 each TRANSDERM DAILY 03/31/23 allopurinoL 100 mg PO HS 03/31/23 Controlled Substance Measures - Controlled Substance Measures Is patient prescribed a controlled substance at discharge?: No
== END ==
LOC: PNWHC3 12:35
PROVIDERS: ATTEND Specialist
DX: M47.816 Spondylosis without myelopathy or radiculopathy, lumbar region (principal); M48.061 Spinal stenosis, lumbar region without neurogenic claudication; M50.30 Other cervical disc degeneration, unspecified cervical region; G89.29 Other chronic pain; F17.200 Nicotine dependence, unspecified, uncomplicated
CPT/HCPCS: 99211

== ENCOUNTER 2023-07-28 12:32 | Day surgery (SDC) | payer MEDICARE ==
[2023-07-28] MEDS ORDERED: methylPREDNISolone ACETATE 40 MG/ML 1 ML VIAL ONE (13:20)
[2023-07-28] MEDS ORDERED: IOPAMIDOL M200 10 ML VIAL ONE (13:20)
--- NOTE | 2023-07-28 13:31 | P.PCN ---
Date of Procedure: 07/28/23 Description of Procedure: PREOPERATIVE DIAGNOSIS: lumbar radiculopathy POSTOPERATIVE DIAGNOSIS: Lumbar radiculopathy PROCEDURE 1. Lumbar epidural steroid injection under fluoroscopic guidance at the L4-L5 level. #3 2. Lumbar epidurogram. Imaging: Fluoroscopy was used, images where saved to the medical record ANESTHESIA: local only EBL: Minimal PROCEDURE INDICATION: The patient with low back pain and radiculitis symptoms unresponsive to conservative treatment. Fluoroscopy was used to optimize visualization of the needle placement and to maximize safety. PROCEDURE DESCRIPTION / TECHNIQUE: The patient was seen and identified in the preoperative area. Risks, benefits, complications including but not limited to infections, bleeding, allergic reaction to medications, nerve damage and incomplete pain relief, as well as alternatives to the procedure were discussed with the patient. The patient agreed to proceed with the procedure and signed the consent. IV was started if indicated above, and vital signs were stable. Patient was taken to the OR and time out was completed. The patient was placed in the prone position on procedure table and a pillow was placed under the abdomen to reduce lumbar lordosis. The lumbosacral area was prepped and draped in the usual sterile fashion. Vitals were closely monitored during the procedure. Using anterior-posterior fluoroscopy, the L4-L5 interlaminar space was identified and the skin over this site was marked and then infiltrated with 1% lidocaine subcutaneously. Subsequently, a 20-gauge Tuohy epidural needle was inserted and advanced toward the epidural space using the Loss of resistance technique and guided by AP and lateral fluoroscopy. The correct needle position in the epidural space was verified with the injection of 1 mL of Omnipaque 180 contrast to observe an acceptable epidurogram, after negative aspiration for blood and CSF and in the absence of paresthesias. Again after negative aspiration, a 3 ml mixture containing 40mg of depomedrol and 2 ml of preservative free Normal Saline was injected and a washout of epidurogram was seen. Needle was withdrawn intact, skin was cleansed, and bandages were applied. COMPLICATIONS: None DISPOSITION / PLANS: The patient was placed in a supine position and transferred to the recovery area in a stable condition for observation. There was no evidence of lower extremity motor or sensory deficit after the procedure. Patient was discharged from the recovery room after meeting discharge criteria. Home discharge instructions were given to the patient by the staff. The patient was reexamined prior to discharge. The patient will follow up as directed.
[2023-07-28] MEDS ORDERED: KETOROLAC 15 MG/ML 1 ML VIAL IVP STA (13:34)
[2023-07-28 14:00] VITALS: BP 123/70; PULSE 59; RESP 16; TEMP 97
--- NOTE | 2023-07-28 14:09 | FL ---
EXAMINATION TYPE: FL guided pain mgmt statistic DATE OF EXAM: 07/28/2023 HISTORY: Fluoroscopy time Total dose area product (DAP) in uGy*m?, mGy*cm? (or similar): 0.8847 IMPRESSION: 1. Fluoroscopy time.
== END 2023-07-28 13:50 | disposition home or self-care (01) ==
LOC: ORPAIN 12:32
PROVIDERS: ATTEND Hospitalist
DX: M54.16 Radiculopathy, lumbar region (principal); I10 Essential (primary) hypertension; F17.200 Nicotine dependence, unspecified, uncomplicated; Z79.899 Other long term (current) drug therapy
CPT/HCPCS: 62323; Q9966; J1010

== ENCOUNTER 2023-11-07 09:32 | Day surgery (SDC) | payer MEDICARE ==
[2023-11-01 14:03] VITALS: BMI 28.5
[2023-11-07] MEDS: IV FLUID CONTINUATION 1,000 ML IV ONE (09:54)
[2023-11-07 09:57] VITALS: TEMP 97.2
[2023-11-07] MEDS: LACTATED RINGERS 1,000 ML IV SCH (10:12)
[2023-11-07 10:17] LABS: Glucose,Whole Blood 125 mg/dL (70-110)
[2023-11-07] MEDS ORDERED: PROPOFOL 10 MG/ML 20 ML VIAL IV ONE (11:10)
--- NOTE | 2023-11-07 11:11 | P.GSHP ---
History of Present Illness H&P Date: 11/07/23 Chief Complaint: Screening colonoscopy This is a 14-year-old female presents today for screening colonoscopy. Patient denies any significant GI complaints. Past Medical History Past Medical History: Deep Vein Thrombosis (DVT), GERD/Reflux, Hypertension, Liver Disease, Osteoarthritis (OA) Additional Past Medical History / Comment(s): Hx migraines, DVT ankle as teen. Hep C 2002, had tx. , Varicose veins., hospitalized 06/2022 for htn., GOUT, back pain. darrell hand arm and finger pain has recently had emg showed got cortisone shot darrell wrists, carpal tunnel darrell hands and arms., pre diabetic History of Any Multi-Drug Resistant Organisms: None Reported Past Surgical History: Back Surgery, Cholecystectomy, Tubal Ligation Additional Past Surgical History / Comment(s): Atopic preg, cyst on ovary, removal tube. Miscarriage, D&C; x2. Back surg x3, 1990, 1992 x2 - Lumbar Laminectomy. COLONOSCOPY, [facility], pain clinic procedure Past Anesthesia/Blood Transfusion Reactions: Motion Sickness Smoking Status: Current every day smoker - Past Family History Father Family Medical History: Coronary Artery Disease (CAD) Sister(s) Family Medical History: Cancer Additional Family Medical History / Comment(s): pancreatic cancer Medications and Allergies Home Medications Medication Instructions Recorded Confirmed Type ALPRAZolam [Xanax] 0.5 mg PO DAILY PRN 07/03/19 11/01/23 History Escitalopram [Lexapro] 20 mg PO DAILY 07/03/19 11/01/23 History Famotidine [Pepcid] 20 mg PO HS 07/03/19 11/01/23 History Rizatriptan Benzoate [Maxalt] 10 mg PO BID PRN 07/03/19 11/01/23 History atenoloL [Tenormin] 100 mg PO HS 07/03/19 11/01/23 History amLODIPine [Norvasc] 10 mg PO DAILY #30 tab 07/19/22 11/01/23 Rx hydrALAZINE HCL [Apresoline] 25 mg PO BID #60 tab 07/19/22 11/01/23 Rx Gabapentin 300 mg PO TID 03/31/23 11/01/23 History Indomethacin [Indocin] 50 mg PO BID PRN 03/31/23 11/01/23 History allopurinoL 100 mg PO HS 03/31/23 11/01/23 History Rosuvastatin [Crestor] 10 mg PO HS 11/01/23 11/01/23 History Allergies Allergy/AdvReac Type Severity Reaction Status Date / Time No Known Allergies Allergy Verified 11/01/23 13:50 Surgical - Exam Vital Signs Temp Pulse Resp BP Pulse Ox 97.2 F L 69 18 121/60 97 11/07/23 09:54 11/07/23 09:54 11/07/23 09:54 11/07/23 09:54 11/07/23 09:54 - General well developed, well nourished, no distress - Eyes PERRL - ENT normal pinna - Neck no masses - Respiratory normal expansion - Cardiovascular Rhythm: regular - Abdomen Abdomen: soft, non tender Results - Labs Abnormal Lab Results - Last 24 Hours (Table) 11/07/23 Range/Units 10:06 POC Glucose (mg/dL) 125 H (70-110) mg/dL Assessment and Plan Assessment: Will perform screening colonoscopy
--- NOTE | 2023-11-07 11:25 | P.OP ---
Date of Procedure: 11/07/23 Preoperative Diagnosis: Screening colonoscopy Postoperative Diagnosis: Rectal polyp Mild diverticulosis Procedure(s) Performed: Colonoscopy Anesthesia: MAC Surgeon: Shay Warren Pathology: other (Rectal polyp) Condition: stable Disposition: PACU Description of Procedure: The patient was placed on the endoscopy table in the lateral position. She received IV sedation for digital rectal exams performed. This revealed no abnormality. The flex colonoscope was then placed patient anus passed througho ut the entire colon. The ileocecal valve was visualized. The cecum, ascending and transverse colon appeared normal. In the descending sigmoid colon there is mild diverticular changes. The scope was provide the rectum and a small sessile polyp was seen. Removed with a cold forcep. The distal rectal appeared normal. Scope withdrawn for patient.
[2023-11-07 11:46] VITALS: RESP 16
[2023-11-07 11:55] VITALS: BP 112/67; PULSE 65
== END 2023-11-07 12:25 | disposition home or self-care (01) ==
LOC: ORWHC2ENDO 09:32
PROVIDERS: ATTEND Surgery
DX: Z12.11 Encounter for screening for malignant neoplasm of colon (principal); K62.1 Rectal polyp; K57.30 Diverticulosis of large intestine without perforation or abscess without bleeding; I10 Essential (primary) hypertension; K21.9 Gastro-esophageal reflux disease without esophagitis; K76.9 Liver disease, unspecified; M10.9 Gout, unspecified; M19.90 Unspecified osteoarthritis, unspecified site; F17.200 Nicotine dependence, unspecified, uncomplicated; Z86.718 Personal history of other venous thrombosis and embolism; Z79.899 Other long term (current) drug therapy; Z90.49 Acquired absence of other specified parts of digestive tract; Z90.721 Acquired absence of ovaries, unilateral; Z98.51 Tubal ligation status
CPT/HCPCS: 45380; 88305

== ENCOUNTER → 2023-11-09 | Outpatient (CLI) | payer MEDICARE ==
--- NOTE | 2023-11-09 13:24 | BD ---
EXAMINATION TYPE: Axial Bone Density DATE OF EXAM: 11/09/2023 CLINICAL HISTORY: 67 years old Female. ICD-10 CODE: M81.0 Known osteoporosis Height: 64.5 Weight: 176 FRAX RISK QUESTIONS: Family History (Parent hip fracture): no History of Fracture in Adulthood: no Secondary Osteoporosis: no Current Tobacco Use: yes RISK FACTORS HISTORY OF: Surgery to Spine: yes L5 S1 When: 1990,1991,2004 MEDICATIONS: Thyroid Medications: no Osteoporosis Medications: no EXAM MEASUREMENTS: Bone mineral densitometry was performed using the [employer]. Bone mineral density as measured about the Lumbar spine is: ----- L1-L4(G/cm2): 1.641 T Score Values are as follows: ----- L1: 3.7 ----- L2: 3.4 ----- L3: 3.6 ----- L4: 4.5 ----- L1-L4: 3.8 Z Score Values are as follows: ----- L1: 4.2 ----- L2: 3.8 ----- L3: 4.1 ----- L4: 4.9 ----- L1-L4: 4.3 Bone mineral density baseline Bone mineral density about the R hip (g/cm2): 1.181 Bone mineral density about the L hip (g/cm2): 1.129 T Score values are as follows: -----R Neck: 1.1 -----L Neck: 0.7 -----R Total: 11.4 -----L Total: 1.0 Z Score values are as follows: -----R Neck: 1.6 -----L Neck: 1.1 -----R Total: 1.5 -----L Total: 1.1 Bone mineral density baseline FRAX%s: The graph provided illustrates a 2.5% chance for a major osteoporotic fx and a 0.1% chance fo r the hips probability for fx in 10 years time. IMPRESSION: Normal (Values between +1 and -1 indicate normal bone mass). Consider repeating this study in 5 year s or sooner if there is some new clinical indication. NOTE: T-SCORE=SD OF THE YOUNG ADULT MEAN.
--- NOTE | 2023-11-10 19:06 | MM ---
Reason for Exam: Screening (asymptomatic). Patient History: Menarche at age 10. First Full-Term at age 25. Postmenopausal. Risk Values: Ashlee 5 year model risk: 1.7%. NCI Lifetime model risk: 5.1%. Tissue Density: There are scattered areas of fibroglandular density. Findings: Analyzed By CAD. No significant mass, suspicious microcalcification, or other discrete abnormality seen. Overall Assessment: Negative, BI-RAD 1 Management: Screening Mammogram of both breasts in 1 year. . Patient should continue monthly self-breast exams. A clinical breast exam by your physician is recommended on an annual basis. This exam should not preclude additional follow-up of suspicious palpable abnormalities. Note on Ashlee scores and lifetime risk: 1. A Ashlee score greater than 3% is considered moderate risk. If this is the case, consider specialist referral to assess eligibility for a risk reducing agent. 2. If overall lifetime risk for the development of breast cancer is 20% or higher, the patient may qualify for future screening with alternating mammogram and breast MRI. Electronically signed and approved by: Nathalie Lau M.D. Radiologist
== END | disposition home or self-care (01) ==
LOC: RADMAMWWP 09:39
PROVIDERS: ATTEND Family Medicine
DX: Z12.31 Encounter for screening mammogram for malignant neoplasm of breast (principal); M81.0 Age-related osteoporosis without current pathological fracture; Z78.0 Asymptomatic menopausal state; R92.323 Mammographic fibroglandular density, bilateral breasts
CPT/HCPCS: 77063; 77067; 77080